=== PATIENT | male | born 1965 | race Caucasian/White ===

== ENCOUNTER → 2021-01-10 08:23 | Outpatient (BNVA) | payer MEDICARE, MEDICAID, SELFPAY | PROVIDERS: PCP Internal Medicine; Referring Provider Internal Medicine; Visit Provider Surgery | DX: K40.90 Unilateral inguinal hernia, without obstruction or gangrene, not specified as recurrent (principal) | CPT/HCPCS: 99202 ==

== ENCOUNTER 2021-01-14 10:49 | Day surgery (SDC) | payer MEDICARE, MEDICAID, SELFPAY ==
--- NOTE | 2021-01-11 10:01 | P.CONAN_ITS ---
Documented by User: Savanah Shira 01/11/21 10:04 HPI - Anesthesia Eval Consult details Narrative: 55yo M for Left Hernia Repair Inguinal with mesh Suboxone daily PMFSH Active Problems Active Problems: All Active Problems (Updated 01/10/21 @ 08:50 by Clemente Hernandez MD) Left inguinal hernia (Acute) Past Medical History Medical History Anxiety COPD (chronic obstructive pulmonary disease) Diabetes GERD (gastroesophageal reflux disease) H/O osteomyelitis HTN (hypertension) Smoker Surgical History Surgical History H/O umbilical hernia repair History of ankle surgery Social History Social History Alcohol intake: never Smoking Status: Current every day smoker Cigarettes Per Day: 5 Years Smoked: 30 Smoked in Last 30 Days: Yes Use of substances other than those prescribed or required for medical reasons: No Are you DNR?: Yes Advance Directives: No Advance Directives Information Provided: Yes Meds Allergies Allergy/AdvReac Type Severity Reaction Status Date / Time No Known Allergies Allergy Verified 01/14/21 11:00 Home Medications Medication Instructions Recorded Confirmed Last Taken Type blood sugar diagnostic #10 ea 01/10/21 Unknown History buprenorphine 8 mg-naloxone 2 mg 1 film BUCCAL DAILY 01/10/21 01/14/21 History sublingual film inhalational spacing device #1 ea 01/10/21 Unknown History lancets 33 gauge #100 ea 01/10/21 Unknown History lisinopril 20 mg tablet 20 mg PO DAILY 01/10/21 Unknown History nicotine 7 mg/24 hr daily 1 patch TRANSDERMAL Q24H 01/10/21 Unknown History transdermal patch omeprazole 20 mg capsule,delayed 20 mg PO QAM 01/10/21 Unknown History release thiamine HCl (vitamin B1) 100 mg 100 mg PO DAILY 01/10/21 Unknown History tablet tizanidine 2 mg tablet 2 mg PO BID 01/10/21 Unknown History umeclidinium 62.5 mcg/actuation 1 inh INHALATION BEDTIME 01/10/21 Unknown History blister powder for inhalation albuterol sulfate 2 puff PO QID PRN 01/14/21 01/14/21 Unknown History clonazepam 1 tab PO TID PRN 01/14/21 01/14/21 Unknown History folic acid 1 tab PO DAILY 01/14/21 01/14/21 Unknown History insulin aspart U-100 [Novolog unit SUBCUT 01/14/21 01/13/21 History Flexpen U-100 Insulin] insulin glargine [Basaglar KwikPen 20 unit SUBCUT 01/14/21 01/13/21 History U-100 Insulin] prazosin 1 cap PO BEDTIME 01/14/21 01/14/21 Unknown History sertraline 2 tab PO DAILY 01/14/21 01/14/21 Unknown History umeclidinium [Incruse Ellipta] 1 puff INHALATION DAILY 01/14/21 01/14/21 Unknown History Exam Exam Date and Time: January 11, 2021 100 Assessment and Plan Assessment Anesthesia Assessment: Chart Reviewed Documented by User: Cyndee Norwood 01/14/21 11:55 [facility] Past Medical History Medical History Anxiety COPD (chronic obstructive pulmonary disease) Diabetes GERD (gastroesophageal reflux disease) H/O osteomyelitis HTN (hypertension) Smoker Family History Family history of problems with anesthesia: No Surgical History Surgical History H/O umbilical hernia repair History of ankle surgery History of Problems with Anesthesia: No Social History Social History Alcohol intake: never Smoking Status: Current every day smoker Cigarettes Per Day: 5 Years Smoked: 30 Smoked in Last 30 Days: Yes Use of substances other than those prescribed or required for medical reasons: No Are you DNR?: Yes Advance Directives: No Advance Directives Information Provided: Yes Meds Allergies Allergy/AdvReac Type Severity Reaction Status Date / Time No Known Allergies Allergy Verified 01/14/21 11:00 Home Medications Medication Instructions Recorded Confirmed Last Taken Type blood sugar diagnostic #10 ea 01/10/21 Unknown History buprenorphine 8 mg-naloxone 2 mg 1 film BUCCAL DAILY 01/10/21 01/14/21 History sublingual film inhalational spacing device #1 ea 01/10/21 Unknown History lancets 33 gauge #100 ea 01/10/21 Unknown History lisinopril 20 mg tablet 20 mg PO DAILY 01/10/21 Unknown History nicotine 7 mg/24 hr daily 1 patch TRANSDERMAL Q24H 01/10/21 Unknown History transdermal patch omeprazole 20 mg capsule,delayed 20 mg PO QAM 01/10/21 Unknown History release thiamine HCl (vitamin B1) 100 mg 100 mg PO DAILY 01/10/21 Unknown History tablet tizanidine 2 mg tablet 2 mg PO BID 01/10/21 Unknown History umeclidinium 62.5 mcg/actuation 1 inh INHALATION BEDTIME 01/10/21 Unknown History blister powder for inhalation albuterol sulfate 2 puff PO QID PRN 01/14/21 01/14/21 Unknown History clonazepam 1 tab PO TID PRN 01/14/21 01/14/21 Unknown History folic acid 1 tab PO DAILY 01/14/21 01/14/21 Unknown History insulin aspart U-100 [Novolog unit SUBCUT 01/14/21 01/13/21 History Flexpen U-100 Insulin] insulin glargine [Basaglar KwikPen 20 unit SUBCUT 01/14/21 01/13/21 History U-100 Insulin] prazosin 1 cap PO BEDTIME 01/14/21 01/14/21 Unknown History sertraline 2 tab PO DAILY 01/14/21 01/14/21 Unknown History umeclidinium [Incruse Ellipta] 1 puff INHALATION DAILY 01/14/21 01/14/21 Unknown History Exam Height,Weight and Vital Signs: Vital Signs Temp Pulse Resp BP Pulse Ox 01/14/21 11:21 97.4 F 84 16 136/93 H 94 Pertinent Lab Results Pertinent Lab Results: Lab Results 01/14/21 01/14/21 01/14/21 Range/Units 11:07 11:11 11:11 WBC 8.2 (4.8-10.8) X10*3/uL RBC 4.64 (4.60-5.80) X10*6/uL Hgb 14.9 (14.0-18.0) g/dl Hct 45.4 (42-52) % MCV 97.8 (80-98) fL MCH 32.1 (27.0-33.0) pg MCHC 32.8 (31.0-36.0) g/dl RDW 12.1 (11.0-16.0) % Plt Count 276 (160-400) X10*3/uL MPV 9.3 L (9.4-12.4) fL Absolute Nucleated RBC 0.000 (0.0-0.012) X10*3/uL Nucleated RBC % (auto) 0.0 (0.0-0.2) /100WBC Sodium 140 (135-145) mmol/L Potassium 4.4 (3.3-5.1) mmol/L Chloride 101 (96-108) mmol/L Carbon Dioxide 31 H (22-29) mmol/L Anion Gap 12 (12-20) BUN 15 (9-16) mg/dL Creatinine 0.77 (0.5-1.4) mg/dL Estim Creat Clear Calc 103.6 Estimated GFR > 60 POC Glucose 107 (60-115) mg/dL Fasting Glucose 93 (60-99) mg/dL Calcium 9.8 (8.4-10.2) mg/dL EKG 01/14/21: NSR 82 Airway Mallampati Class: II TM Dist: >3cm Neck ROM: Full Loose/Missing/Broken Teeth: Yes (Edentulous) Heart: RRR Lungs: CTAB Assessment and Plan Assessment Anesthesia Assessment: Anesthesia Plan Discussed and Chart Reviewed Final Anesthetic Review NPO: Yes ASA Class: II Final Preanesthetic Review: No Changes in Pt Med Stat, Meds/Allgs Chart Reviewed, Consent Obtained/Reviewed and Anes Risks/Benef Reviewed Patient Risk: Intermediate Procedure Risk: Low Assessment/Block/Sedation in SS: Assess/Block/Sedation-SS Anesthetic Plan Anesthetic Plan: GA Disposition: Standard PACU
[2021-01-14] VITALS (8 sets, daily range): BP systolic 109–146; BP diastolic 66–93; PULSE 83–93; RESP 14–17; TEMP 36.3; O2SAT 94–99; BMI 25.2
--- NOTE | 2021-01-14 | ECG_ITS ---
Test Reason : PREOP Blood Pressure : / mmHG Vent. Rate : 082 BPM Atrial Rate : 082 BPM P-R Int : 130 ms QRS Dur : 082 ms QT Int : 360 ms P-R-T Axes : 080 063 049 degrees QTc Int : 420 ms Normal sinus rhythm Normal ECG No previous ECGs available Referred By: Savanah Silva Electronically Signed By:Louis Ashford
[2021-01-14 11:15] LABS: Glucose, Whole Blood 107 mg/dL (60-115)
[2021-01-14 11:18] LABS: Hematocrit 45.4 % (42-52); Hemoglobin 14.9 g/dl (14.0-18.0); Mean Corpuscular HGB Conc 32.8 g/dl (31.0-36.0); Mean Corpuscular Hemoglobin 32.1 pg (27.0-33.0); Mean Corpuscular Volume 97.8 fL (80-98); Mean Platelet Volume 9.3 fL (9.4-12.4); Platelet Count 276 X10*3/uL (160-400); Red Blood Count 4.64 X10*6/uL (4.60-5.80); Red Cell Distribution Width 12.1 % (11.0-16.0); White Blood Count 8.2 X10*3/uL (4.8-10.8)
[2021-01-14] MEDS: Lactated Ringers 1,000 ML 100 ML IVCONT (11:32)
[2021-01-14 11:40] LABS: Anion Gap 12 (12-20); Blood Urea Nitrogen 15 mg/dL (9-16); Calcium 9.8 mg/dL (8.4-10.2); Carbon Dioxide 31 mmol/L (22-29); Chloride 101 mmol/L (96-108); Creatinine Clr Calc Pharmacy 103.6; Estimated Glomerular Filt Rate > 60; Glucose Fasting 93 mg/dL (60-99); Potassium 4.4 mmol/L (3.3-5.1); Sodium 140 mmol/L (135-145)
[2021-01-14] MEDS: Midazolam HCl/PF 2 MG/2 ML VIAL IVPUSH (12:46)
--- NOTE | 2021-01-14 14:09 | MHC.SHP ---
Pre-Procedural Eval Section A The patient is an INPATIENT: No Changes since office visit: Yes Patient answered all questions; No Cold of Flu in the past 2 weeks, No New Medical Problems and No Changes in Medication The History & Physical has been completed within 30 days and I have reviewed it.: Yes Section B Chief Complaint: inguinal hernia without obstruction Allergies: Allergies Allergy/AdvReac Type Severity Reaction Status Date / Time No Known Allergies Allergy Verified 01/14/21 11:00 Plan Diagnosis/Plan: Unchanged I have reviewed the history and physical and performed a pertinent physical examination on my patient. No changes have occurred unless specified.
--- NOTE | 2021-01-14 15:34 | W.PM.OPN ---
Operative Note Operative Note Date of Service: 01/14/21 Narrative: Preoperative diagnosis: Left inguinal hernia Postoperative diagnosis: Same Procedure: Repair of inguinal hernia Surgeon: Clemente Hernandez MD Operating Engineer Apprentice: Hola Batres Anesthesia: General LMA Indications for procedure: Repair of left inguinal hernia with mesh Operative findings:. Large sliding indirect left inguinal hernia with sigmoid colon Specimen: None Estimated blood loss: 10 mL Complications: None Procedure details: Patient was brought to the OR and placed in a supine position. After administering general anesthesia the patient's abdomen was prepped with ChloraPrep and draped in a sterile fashion. A surgical time-out was called the consent confirmed. Patient received preoperative antibiotics and Venodyne boots were in place. Local anesthesia consisting of 0.25% Sensorcaine with epinephrine was infiltrated over the left inguinal ligament. Incision was then made in oblique fashion over the inguinal ligament. This carried out through subcutaneous tissue past Kamilah's fashion up to the external oblique aponeurosis. Additional local was infiltrated below the external oblique aponeurosis. This was then incised with a scalpel wide with the Metzenbaum scissors. Spermatic cord was then dissected free from the surrounding inguinal canal and retracted using a Barb drain. The floor of the inguinal canal was examined and no direct hernia was identified. Fibers of the cremasteric muscle were then and an indirect sac was identified. This was dissected down to the internal ring. The sac was then opened and the contents reduced. The sliding hernia was identified therefore the sac was closed using a pursestring of 0 Polysorb suture plicated to the internal oblique aponeurosis. No sac was sent as specimen. Attention was then directed to the direct space which was divided between Allis clamps. The preperitoneal space was then created. This was opened further using an open Ray-Anita sponge. A large extended PHS mesh was then obtained. The circular underlay was placed into the preperitoneal space and deployed. The overlay was then secured to the pubic tubercle conjoined tendon shelving edge of the inguinal ligament using interrupted 0 Polysorb sutures. A slit was made in the mesh and the mesh were wrapped around the spermatic cord at the internal ring. This was then secured to the shelving edge of the inguinal ligament using the 0 Polysorb suture. This was felt to be loose enough to allow the tip of an index finger to pass. Wounds were checked for hemostasis. Wounds were irrigated with saline solution and suctioned dry. External oblique aponeurosis was then closed using a running 2 0 Polysorb suture. Kamilah's fascia and dermis reapproximated using interrupted 3-0 Polysorb sutures. Skin was then closed using a running subcuticular 4-0 Polysorb suture. Steri-Strips 2 x 2 gauze and Tegaderm were then applied. The patient tolerated the procedure well. Sponge, instrument, needle counts reported as correct. Patient was transferred to PACU in stable condition.
== END 2021-01-14 17:00 | disposition home or self-care (01) ==
PROVIDERS: Nurse Practitioner; PCP Internal Medicine; Visit Provider Surgery
PROC: (CPT 49525; principal; 2021-01-14 12:40)
DX: K40.90 Unilateral inguinal hernia, without obstruction or gangrene, not specified as recurrent (principal); K21.9 Gastro-esophageal reflux disease without esophagitis; I10 Essential (primary) hypertension; J44.9 Chronic obstructive pulmonary disease, unspecified; E11.9 Type 2 diabetes mellitus without complications; Z79.4 Long term (current) use of insulin; Z79.51 Long term (current) use of inhaled steroids; Z79.899 Other long term (current) drug therapy; F17.210 Nicotine dependence, cigarettes, uncomplicated
CPT/HCPCS: 49525; 36415; 80048; 82947; 85027; 93005; C1781; J0131; J0690; J1100; J1885; J2250; J2405; J3010

== ENCOUNTER → 2021-01-24 13:05 | Outpatient (BNVA) | payer MEDICARE, MEDICAID, SELFPAY | PROVIDERS: PCP Internal Medicine; Referring Provider Internal Medicine; Visit Provider Surgery | DX: K40.90 Unilateral inguinal hernia, without obstruction or gangrene, not specified as recurrent (principal) | CPT/HCPCS: 99212 ==

== ENCOUNTER 2021-08-13 16:32 | Outpatient (REF) | payer MEDICARE, MEDICAID, SELFPAY ==
--- NOTE | ~2021-08-13 | US_ITS ---
EXAMINATION: US VENOUS ULTRASOUND WITH DOPPLER LOWER EXTREMITY, LEFT CLINICAL INFORMATION: Edema pain COMPARISON: None TECHNIQUE: Ultrasound of the deep veins is performed from the hip to the calf with compression sonography and color and pulse Doppler assessment. Spectral analysis with color-flow imaging is performed. FINDINGS: There is normal venous compression and respiratory variation and augmented flow. The visualized common femoral vein, superficial femoral vein, profunda femoral vein, popliteal vein, and the trifurcation region shows no evidence of deep venous thrombosis. There is no significant popliteal fossa cyst. If the patient's symptoms persist, followup ultrasound in 5 days 7 days might be of value to exclude proximal propagation from a non-visualized calf vein. US/US venous duplex LE LT IMPRESSION: No DVT demonstrated in the left lower extremity.
== END 2021-08-13 16:33 | disposition home or self-care (01) ==
LOC: HO.US 16:32
PROVIDERS: PCP Internal Medicine; Visit Provider Internal Medicine
DX: M79.662 Pain in left lower leg (principal); R60.9 Edema, unspecified
CPT/HCPCS: 93971

== ENCOUNTER 2024-08-16 08:40 | Outpatient (AMB) | payer OTHER, SELFPAY ==
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
== END 2024-08-16 09:20 | disposition home or self-care (01) ==
LOC: HO.HGS 08:40
PROVIDERS: PCP Internal Medicine; Visit Provider Surgery
DX: K40.90 Unilateral inguinal hernia, without obstruction or gangrene, not specified as recurrent (principal)
CPT/HCPCS: 99204

== ENCOUNTER → 2024-08-16 08:40 | Outpatient (BNVA) | payer OTHER, SELFPAY | PROVIDERS: PCP Internal Medicine; Visit Provider Surgery | DX: K40.90 Unilateral inguinal hernia, without obstruction or gangrene, not specified as recurrent (principal) | CPT/HCPCS: 99202 ==

== ENCOUNTER 2024-10-05 08:01 | Outpatient (REF) | payer OTHER, SELFPAY ==
--- NOTE | ~2024-10-05 | CT_ITS ---
CLINICAL HISTORY: R10.32 - Left lower quadrant pain CT abdomen and pelvis with contrast Comparison: CT/UT/SR - ABDOMEN WO IV CONTRAST [id number] - 12/14/19 12:46 EDT Findings: The lung bases are clear. There is chronic pancreatitis. Several small nonobstructing calculi are seen in the lower pole of the left kidney. No bowel obstruction, pneumoperitoneum, or pneumatosis. There is a large stool burden consistent with constipation. There is a small left inguinal hernia containing fat only. The solid organs are otherwise unremarkable. Prostate is enlarged. No acute fracture. IMPRESSION: 1. Large stool burden suggests constipation. 2. Chronic pancreatitis. 3. Left-sided nephrolithiasis without obstructive uropathy. 4. Prostatomegaly. 5. Small left inguinal hernia containing fat only. This document has been electronically signed by: Roby Dalton MD on 10/05/2024 13:08:24
--- OUTSIDE RECORDS SUMMARY | 2024-10-05 08:06 | XMS_ITS | Encounter Summary ---
Author Organization [employer] Address [address] [place] [address] [address] [place] [address] Care Team Providers Care Order Takers Supervisor Name Role Phone Hal Blair MD Primary Care Prov ider Encounter Details Date Type Department Care Team (Late st Contact Info) Description 01/26/2023 Orders Only [facility] PEDS [address] [place] [address] Socorro Rubio LPN Social History Tobacco Use Types Packs/Day Years Used Date Smoking Tobacco: Never Assessed Depression Answer Date Recorded Patient Health Questionnaire-9 Score 0 11/24/2022 Depression Answer Date Recorded Patient Health Questionnaire-2 Score 0 11/24/2022 Sex and Gender Information Value Date Recorded Sex Assigned at Male 07/07/2022 10:19 AM EDT Legal Sex Male 10:19 AM EDT Gender Identity Male 07/07/2022 10:19 AM EDT Sexual Orientation Straight 07/07/2022 10 :19 AM EDT documented as of this encounter Plan of Treatment Upcoming Encounters Date Type Department Care Team (Late st Contact Info) Description 10/10/2024 10:30 AM EST Office Visit [facility] PEDS [address] [place] [address] Hal Blair MD [address] [place] [address] 11/25/2024 10:15 AM EDT Office Visit [facility]ED[facility] [address] [place] [address] Hal Blair MD [address] [place] [address] documented as of this encounter Visit Diagnoses Not on filedocumented in this encounter Additional Health Concerns Assessment Noted Time PHQ-9 Depression Total Score: 0 11/25/19 23 9:24 AM EDT documented as of this encounter Care Teams Order Takers Supervisor Relationship Specialty Start Date End Date Hal Blair MD [address] [place] [id number] PCP - General Internal Medicine 04/16/20 documented as of this encounter
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
--- OUTSIDE RECORDS SUMMARY | 2024-10-05 08:06 | XMS_ITS | Encounter Summary ---
Author Organization [employer] Address [address] [place] [address] Care Team Providers Care Circulation Manager Name Role Phone Hal Blair MD Primary Care Prov ider Encounter Details Date Type Department Care Team (Late st Contact Info) Description 08/21/2023 Abstract [facility] [address] [place] [address] Hal Blair MD [address] [place], [place] [phone] Social History Tobacco Use Types Packs/Day Years [...] Description 10/10/2024 10:30 AM EST Office Visit [facility] MED [facility] PEDS [address] [place] [address] Hal Blair MD [address] [place] [address] 11/25/2024 10:15 AM EDT Office Visit [facility] MED [facility] PEDS [address] [place] [address] Hal Blair MD [address] [place] [address] documented as of this encounter Visit Diagnoses Not on filedocumented in this encounter Additional Health Concerns Assessment Noted Time PHQ-9 Depression Total Score: 0 11/25/19 23 9:24 AM EDT documented as of this encounter Care Teams Circulation Manager Relationship Specialty Start Date End Date Hal Blair MD [address] [place] [address] PCP - General Internal Medicine 04/16/20 documented as of this encounter
--- OUTSIDE RECORDS SUMMARY | 2024-10-05 08:06 | XMS_ITS | Encounter Summary ---
Author Organization [employer] Address [address] [place] [address] Care Team Providers Care Marble Installer Name Role Phone Hal Blair MD Primary Care Prov ider Reason for Visit * Reason Onset Date Comments Nurse Triage 08/15/2024 Encounter Details Date Type Department Care Team (Late st Contact Info) Description 08/15/2024 Telephone [facility] [address] [place] [address] Hal Blair MD [address] [place] [address] Nurse Triage Social History Tobacco Use Types Packs/Day Years Used Date Smoking Tobacco: Never Assessed Depression Answer Date Recorded Patient Health Questionnaire-9 Score 0 11/24/2022 Housing Stability Answer Date Recorded What is your housing situation today? I have noellejose d giraldo 06/22/[address] you [...] encounter Miscellaneous Notes * Telephone Encounter - Heather Lainez RN - 08/15/2024 4:53 PM EST Triage call x2. Pt didn't answer left voice message to call [facility] [phone] * Telephone Encounter - Glenn Domingo - 08/15/2024 4:08 PM EST Symptom: Urination Pain Outcome: Schedule an urgent appointment (within 1 hour) or talk to a nurse or provider soon Reason: Blood in urine documented in this encounter Plan of Treatment Upcoming Encounters Date Type Department Care Team (Late st Contact Info) Description 10/10/2024 10:30 AM EST Office Visit [facility] [address] [place] [address] Hal Blair MD [address] [place] [address] 11/25/2024 10:15 AM EDT Office Visit [facility] [address] [place] [address] Hal Blair MD [address] [place] [address] documented as of this encounter Visit Diagnoses Not on filedocumented in this encounter Additional Health Concerns Assessment Noted Time PHQ-9 Depression Total Score: 0 11/25/19 23 9:24 AM EDT documented as of this encounter Care Teams Marble Installer Relationship Specialty Start Date End Date Hal Blair MD [address] [place] [id number] PCP - General Internal Medicine 04/16/20 documented as of this encounter
--- OUTSIDE RECORDS SUMMARY | 2024-10-05 08:06 | XMS_ITS | Data Portability ---
Author Organization [employer] [facility], [facility] Address [address] [place] [address] Care Team Providers Care Bobbin Coil Winder Name Role Phone [facility] Referring Provider [facility] Referring Provider Assessment Encounter Date Assessment Date Assessment LastModified by Organization Details LastModified Time 04/15/2022 04/15/2022 This 56-year-old male [facility] about the recent onset of inflammation of his left lower leg without systemic symptoms. He previously has had cellulitis in this area that responded to Bactrim DS. I reviewed images of his left lower leg and it appears he has recurrent cellulitis. I recommended a 5 day course of Bactrim DS twice daily. He will follow up with his PCP. The patient agreed with this plan. [email or web address] Not available 04/15/2022 11:46:49 06/22/2023 06/22/2023 I have reviewed and agree with the assessment and plan as documented by the slunk skinner. I provided real time medical direction for this encounter and was immediately available to provide additional phone based assistance as needed. History as noted by slunk skinner. Pt with history of IDDM, reports fall 5 days ago after he developed dizziness. He sustained abrasion to his nose and R knee. He denies any LOC and noted low blood sugar of 50 after the fall. Since the fall, he denies any recurrent episodes of dizziness or hypoglycemia. He denies any DOMINGUEZ, neck pain, nausea or vomiting. He is requesting evaluation of his abrasions and a prescription for bacitracin ointment. On exa, pt appears comfortable. Vitals are normal with O2 sat of 94% on 3L, his baseline. There are nor orthostatic BP or HR changes from seated to standing. Healing abrasions noted on nasal bridge as well as R knee. No evidence of purulent drainage, erythema or induration. No nasal pain, tenderness or deformity. POC blood sugar: 168. Pt reports his BS was 123 this AM. Last tetanus reportedly 2011. Impression: Recent episode 5 days ago of hypoglycemia and fall with nasal and R knee abrasions but no LOC. No recurrence of symptoms since then. Neuro exam and gait normal. No orthostatic dizziness or vital sign changes. Healing abrasions noted on nasal bridge and R knee which do not appear infected. Blood sugar this AM 123, currently 168. Abrasions appear to be healing well. Pt is prescribed bacitracin ointment to apply to the abrasions bid until healed. Medic does not have tetanus vaccines. Primary care team will need to follow up with the pt later this week to ensure that his abrasions continue to heal well and to arrange for him to receive a tetanus booster. Pt instructed to seek medical attention right away with any worsening or new symptoms, which are reviewed with him. [email or web address] Not available 06/22/2023 12:40:58 07/21/2023 07/21/2023 I provided real -time medical direction via phone for this encounter, and was available for additional phone based assistance as needed. I have reviewed and agree with the Assessment and Plan as documented by the Director Of In Service Education. Patient given the opportunity to ask questions. As per above, patient calls with multiple issues. He is O2 dependent and wants portable oxygen. He has a concentrator in his bedroom and wants a longer hose. He would also like a refill on his Albuterol MDI and Symbicort. He denies any other issues or complaints. We discussed the diagnostic uncertainty of home visits and the risk associated with this. In this case, the patient and I felt this to be an acceptable and reasonable amount of risk given the benefit of avoiding an ED visit. We discussed the need to seek care urgently/emerge ntly in the setting of any new, serious symptoms. Plan to contact his care team to assist with home O2 supplies and the slunk skinner on the scene graciously helped the patient call his PCP to assist him with refilling and clarifying his medications and their doses. Not available 07/21/2023 15:47:41 06/16/2024 06/16/2024 As noted, we were called to see this patient regarding concerns of edema. Evaluation in the field was performed by my slunk skinner colleague, as noted above, I provided real-time direction and supervision for this visit. The evaluation revealed 58y M with frequent alcohol use, currently intoxicated, presenting with 2+ pitting edema that he reports has worsened over last 2 days. has had this before but not as advanced. No inciting event -- no cp episodes, shob, dizziness, falls to raise concern for cardiopulm event; no fevers, no pablo erythema to declare cellulitis. Intoxicated limiting comfort with work up for slunk skinner. Encourage elevation, mobilizatoin, f/u w PCP and we can re-visit tomorrow. Impression: bilateral edema Plan: supportive care, f/u PCP, repeat visit tomorrow Primary care, consider f/u in 5-7d Disposition: We discussed the diagnostic uncertainty of home visits and the risk associated with this. In this case, the patient and I felt this to be an acceptable and reasonable amount of risk given the benefit of avoiding an ED visit. We discussed the need to seek care urgently/emerge ntly in the setting of any new or worsening serious symptoms, particularly chest pain, dizziness, shob fevers, worsening pain atilhou Not available 06/16/2024 19:13:27 06/18/2024 06/18/2024 I provided real -time medical direction via phone for this encounter and was available for additional phone-based assistance as needed. I have reviewed and agree with the Assessment and Plan as documented by the Director Of In Service Education. Patient given the opportunity to ask questions. Our service contacted for an assessment of: Edema As per above, patient had obvious hypoxemia with bluish color of his lips. Diminished breath sounds per slunk skinner bilaterally with poor air movement and 3+ bilateral pitting edema. Per slunk skinner on the scene, patient's O2 sat on room air 58% and upon arrival of 911 services the patient is O2 sat went to 78 with CPAP and PEEP 10 in the field Impression and plan: Sent 911 to [facility] Emergency Department with hypoxemia and expect call made. Not available 06/18/2024 13:04:54 Plan of Treatment Reminders Order Date Submit Date Provider Last Modified By Organization Details Last Modified Time Details Appointments None recorded. Lab None recorded. Referral None recorded. Procedures None recorded. Surgeries None recorded. Imaging None recorded. Medication Orders Bactrim 400 mg-80 mg tablet 2021 022 [facility], [address], [place], [id number], 2 12:01:09 bacitracin 500 unit/gram topical ointment 2022 023 [id number], [address], [place], [id number], 3 12:38:27 Patient TargetsNo targets recorded. Patient InstructionsNo instructions recorded. Reason for Referral None Reported. Medical Equipment None Reported. Medications Name Sig Start Date Stop Date Status Note LastModified by Organization Details LastModified Time prednisone 10 mg tablet PLEASE SEE ATTACHED FOR DETAILED DIRECTIONS active Not Available Not Available N ot Available tizanidine 2 mg tablet TAKE ONE TABLET TWICE DAILY NEEDED, DO NOT EXCEED THREE TABLETS IN 24 HOURS active Not Available Not Available No t Available ibuprofen 800 mg tablet TAKE 1 TABLET BY MOUTH THREE TIMES DAILY WITH FOOD NEEDED FOR PAIN active Not Available Not Available No t Available sulfamethoxa zole 400 mg-trimethop rim 80 mg tablet TAKE TWO TABLETS BY MOUTH TWICE DAILY FOR 5 DAYS active Not Available Not Available No t Available prazosin 1 mg capsule TAKE 1 CAPSULE BY MOUTH EVERY NIGHT active Not Available Not Available No t Available FreeStyle Lancets 28 gauge USE DIRECTED TO TEST BLOOD GLUCOSE THREE TIMES DAILY active Not Available Not Available No t Available lisinopril 20 mg tablet TAKE 1 TABLET BY MOUTH EVERY DAY active Not Available Not Available No t Available sertraline 100 mg tablet TAKE 2 TABLETS BY MOUTH EVERY DAY active Not Available Not Available No t Available clonazepam 1 mg tablet TAKE 1 TABLET BY MOUTH THREE TIMES DAILY AND 1 TABLET NEEDED FOR ANXIETY active Not Available Not Available No t Available bacitracin 500 unit/gram topical ointment Apply small amount to abrasions bid until they are healed. 2022 active Not Available Not Available Not Avai lable bacitracin zinc 500 unit/gram topical ointment APPLY SMALL AMOUNT TO ABRSIONS TWICE DAILY UNTIL THEY ARE HEALED active Not Available Not Available N ot Available ketorolac 0.5 % eye drops INSTILL 1 DROP IN AFFECTED EYE THREE TIMES DAILY DIRECTED. START 2 DAYS BEFORE SURGERY. TAPER DIRECTED active Not Available Not Available No t Available omeprazole 20 mg capsule,melissa yed release TAKE ONE CAPSULE BY MOUTH EVERY DAY BEFORE A MEAL active Not Available Not Available No t Available cefuroxime axetil 500 mg tablet TAKE 1 TAB BY MOUTH TWICE DAILY active Not Available Not Available Not Available lisinopril 40 mg tablet active Not Available Not Available Not Available Ventolin HFA 90 mcg/actuatio n aerosol inhaler INHALE 2 PUFFS INTO THE LUNGS EVERY 4 HOURS NEEDED active Not Available Not Available No t Available Novolog FlexPen U-100 Insulin aspart 100 unit/mL (3 mL) subcutaneous inject as directed before meals- if BS= 70 - 139= 0U; 140 - 180= 4U; 181 - 240= 6u; 241 - 300=8u; 301 - 350=10u; 351 - 400 =12 units active Not Available Not Available No t Available Symbicort 80 mcg-4.5 mcg/actuatio n HFA aerosol inhaler INHALE 2 PUFFS BY MOUTH TWICE DAILY EVERY MORNING AND EVERY NIGHT . RINSE MOUTH AFTER USE active Not Available Not Available No t Available FreeStyle Lite Meter kit USE DIRECTED TO TEST BLOOD GLUCOSE active Not Available Not Available No t Available FreeStyle Lite Strips USE DIRECTED THREE TIMES DAILY TO TEST BLOOD GLUCOSE active Not Available Not Available No t Available Lantus Solostar U-100 Insulin 100 unit/mL (3 mL) subcutaneous pen INJECT 10 UNITS UNDER THE SKIN AT BEDTIME active Not Available Not Available No t Available buprenorphin e 8 mg-naloxone 2 mg sublingual film DISSOLVE 1 FILM UNDER THE TONGUE THREE TIMES DAILY active Not Available Not Available No t Available TRUEplus Lancets 33 gauge TEST BLOOD SUGAR THREE TIMES DAILY active Not Available Not Available Not Available Incruse Ellipta 62.5 mcg/actuatio n powder for inhalation INHALE 1 PUFF DAILY AT THE SAME TIME EACH DAY active Not Available Not Available No t Available Vitals Date Recorded Body temperature Body height Oxygen saturation Oxygen saturation in Arterial blood by Pulse oximetry Heart rate Oxygen saturation Oxygen saturation in Arterial blood by Pulse oximetry Inhaled oxygen flow rate Body weight Systolic blood pressure Diastolic blood pressure Provider Name and Address Organization Details Last Updated DateTime 3 97.9 [degF] 172.72 cm 85 % 85 % 88 /min 94 % 94 % 3 L/min 12509.8 4 g 147 mm[Hg] 78 mm[Hg] Not Available [employer] 3 12:12:52 Date Recorded Respiratory rate Provider Name a nd Address Organization Details Last Updated DateTime 06/22/2023 18 /min Shaun Cosby MD [address] [place] [address],[address], [place], [address], [place] - [employer] 06/22/2023 12:15:42 Date Recorded Respiratory rate Heart rate Oxygen saturation Oxygen saturation in Arterial blood by Pulse oximetry Body temperature Body weight Body height Systolic blood pressure Diastolic blood pressure Provider Name and Address Organization Details Last Updated DateTime 3 18 /min 80 /min 90 % 90 % 99 [degF] 64340.6 g 172.72 cm 172 mm[Hg] 79 mm[Hg] Not Available [employer] 3 14:41:07 Date Recorded Body temperature Oxygen saturation Oxygen saturation in Arterial blood by Pulse oximetry Inhaled oxygen flow rate Body weight Heart rate Respiratory rate Systolic blood pressure Diastolic blood pressure Provider Name and Address Organization Details Last Updated DateTime 4 98.8 [degF] 96 % 96 % 4 L/min 00651.8 g 84 /min 16 /min 158 mm[Hg] 78 mm[Hg] Not Available [employer] 4 19:02:49 Date Recorded Oxygen saturation Oxygen saturation in Arterial blood by Pulse oximetry Body weight Heart rate Respiratory rate Body temperature Systolic blood pressure Diastolic blood pressure Provider Name and Address Organization Details Last Updated DateTime 4 50 % 50 % 70612.9 84 g 91 /min 14 /min 97.6 [degF] 153 mm[Hg] 77 mm[Hg] Not Available [employer] 4 13:02:02 Social History None recorded. Functional Status None recorded. Mental Status None recorded. Family History Nothing Reported. Medical History No medical history recorded. Past Encounters Encounter ID Performer Location Encounter Start Date Encounter Closed Date Diagnosis/Indication Diagnosis SNOMED-CT Code Diagnosis ICD10 Code Diagnosis Note [id number] Sree Adams MD [facility] [address] [place] [id number] 04/15/2022 11:39:15 06/03/2022 16:00:54 Cellulitis of lower limb [id number] L03.119 [id number] Shaun Cosby MD [facility] [address] [place] [id number] 06/22/2023 12:12:41 06/23/2023 10:58:10 Abrasion of face 841724914 S00.81XA Abrasion o f skin of right knee 5261306376 9551937 S80.211A [id number] Deja Gomez MD [facility] [address] [place] [address] [id number] 07/21/2023 14:41:01 07/21/2023 19:27:27 Chronic obstructive pulmonary disease [id number] J44.9 [id number] Sweetie Mcclure MD [facility] [address] [place] [address] [id number] 06/16/2024 19:02:40 06/16/2024 22:34:31 Edema of lower extremity 286858438 R60.0 [id number] Deja Gomez MD [facility] [address] [place] [address] [id number] 06/18/2024 13:01:53 06/18/2024 17:38:25 Hypoxia 192898743 R09.02 Health Concerns Section Related Observation LastModified by Organization Detai ls LastModified Time None Recorded Concern Status LastModified by Organization Details LastModified Time None Recorded Advance Directives Directive None Recorded Payers Encounter Date Sequence Insurance Name Policy Number Policy Darling Covered Member ID Darling Member ID Guarantor Name 04/15/2022 1 [facility] - DOS PRIOR TO 2022 - DUAL ELIGIBLE (MEDICARE REPLACEMENT/AD VANTAGE - HMO) Rei Nielsen [id number] Rei Nielsen 06/22/2023 1 [facility] - DOS ON OR AFTER 2022 - DUAL ELIGIBLE - HALF-WAY OPTIONS AND ONE CARE (MEDICARE REPLACEMENT/AD VANTAGE - HMO) Rei Nielsen [id number] Rei Nielsen 07/21/2023 1 [facility] - DOS ON OR AFTER 2022 - DUAL ELIGIBLE - HALF-WAY OPTIONS AND ONE CARE (MEDICARE REPLACEMENT/AD VANTAGE - HMO) Rei Nielsen [id number] Rei Nielsen 06/16/2024 1 [facility] - DOS ON OR AFTER 2022 - DUAL ELIGIBLE - HALF-WAY OPTIONS AND ONE CARE (MEDICARE REPLACEMENT/AD VANTAGE - HMO) Rei Nielsen [id number] Rei Nielsen 06/18/2024 1 [facility] - DOS ON OR AFTER 2022 - DUAL ELIGIBLE - HALF-WAY OPTIONS AND ONE CARE (MEDICARE REPLACEMENT/AD VANTAGE - HMO) Rei Nielsen [id number] Rei Nielsen Notes Date Note Type Note Provider Name and Address Organization Details Recorded Time 04/15/2022 text/html HPI: Left lower extremity cellulitis , 4 inch area , bright red as had before in August. ..................... ..................... ..................... ..................... ..................... ..................... ............... [facility] Nursing Assessment: Comments: request review no further information needed to process visit Sree Adams MD [address] [place] [address],[address], [place], [phone], [employer] 04/15/2022 11:50:04 06/22/2023 text/html This was a super vised home visit with slunk skinner Rei Caraballo. HPI: HX: Smoker , Opioid dependency in Remission,GERD, anxiety. Patient with fall on the street 3-4 days prior. Scraped knee and face. NO ED evaluation. BG at home after found to be 50. OK since then this morning 123. Concerned about wounds. Last TDAP per record here is 09/2011. ..................... ..................... ..................... ..................... ..................... ..................... ............... [facility] Nursing Assessment: Comments: POC went low, dizzy, 5 days ago, fell and now has wounds to right knee/face. painful. No ED visit hx PTSD Called Member and updated address/phone number Hpattelizabeth [place] ..................... ..................... ..................... ..................... ..................... ..................... ............... Director Of In Service Education Note From Rei Caraballo: Pt reports fall from standing outside 5 days ago. Pt denies LOC and is not on thinners. Pt was found to have a BG of 50. Pt is an IDDM, uses lantus and novolog. Since the fall, BG have been in the ? l ow to mid 100? s ? and the pt denies any additional falls or dizzy spells. Pt is requesting rx for bacitracin. Pt also requests a new nasal cannula because his broke two days ago. Pt is alert, NAD. VSS. No change in ortho VS. Room air SpO2 85%. Afebrile. Neuro exam and gait normal. Lungs CTA. Benign ABD exam. No LLE. Healing abrasion on bridge of nose. Open abrasion on left knee, minimal serosanguineous drainage. B. Pt provided with a new NC and SpO2 reassessed at 95% on 3 lpm. Pt instructed to contact PCP? s office today for tetanus and to schedule a f/u. ..................... ..................... ..................... ..................... ..................... ..................... ............... Disposition: Fulfilled Shaun Cosby MD [address] [facility],[address], [place], [phone], [employer] 06/22/2023 13:01:38 07/21/2023 text/html HPI: Member called CRU, c/o sob especially on activity, dizziness. Member takes Symbicort, albuterol, Wixela mdi's. Member reports inhalers are not helping. Member was able to speak in full sentences without pauses or breaks. PMH: COPD, htn, opioid dependence, smoker. Member is also requesting portable o2 tank and hoses. Advised member to follow up with PCP office for that request. Member verbalized comprehension and agreed with this plan. ..................... ..................... ..................... ..................... ..................... ..................... ............... [facility] Nursing Assessment: Comments: CRC RN did not require any additional information to process this visit. ..................... ..................... ..................... ..................... ..................... ..................... ............... Director Of In Service Education Note From Clemente Ramsey: Patient CONSTANTINO times three answers door with a steady slow gate. Patient complains of shortness of breath time several days. Patient states he ran out of his symbicort and albuterol inhalers yet states he has refills at the pharmacy. Patient states he started the process of getting portable oxygen this morning so that he could leave the house again. Patient reports increased shortness of breath times several weeks. Patient states increase of shortness of breath on exertion. Patient denies chest pain, headache nausea, vomiting, diarrhea or any other pain or complaints. Patient reports normal intake and elimination. Patient pink, warm and dry secondary exam unremarkable. Negative increased work of breathing positive full sentences negative use of accessory muscles to breathe negative edema noted. [facility] advises patient to follow up with PCP-[facility] to obtain refills of Symbicort. [facility] will call in albuterol to patient? s local pharmacy. Red flags and patient education discussed. ..................... ..................... ..................... ..................... ..................... ..................... ............... Disposition: Fulfilled Deja Gomez MD [address] [facility],[address], [place], [phone], [employer] 07/21/2023 15:48:16 06/16/2024 text/html CRC Nurse Triage Notes (Deidre Mcgowan): Reason For Request: pt suspecting cellulitis in legs knees down Chief Complaints: Cellulitis PMH: COPD/Asthma, Diabetes, Hypertension Allergies: No Known Comments: Patient report increased swelling to bilateral lower extremities below knee down to feet since yesterday. Appears red, swollen, and warm to touch. Increased difficulty ambulating. Report slight shortness of breath. No known fever. Denies chest pain.[facility] HPI: 2+ pitting edema x 2 days. warmth, redness. swelling has happened before maybe but not with this swelling. no recent chest pain episodes, no worsened shob or dizziness. intoxicated.......... ..................... ..................... ..................... ..................... ..................... ..................... ...... Director Of In Service Education Note From Nehemias Mitchell: Pt co edema in feet/ankles for past 2 days with discoloration. Pt initially said discoloration was new and later stated he always has discoloration, Pt ETOH upon arrival nd poor historian. Pt admitted to alcohol and marijuana use prior to arrival. Pt admitted to eatingfoods high in salt over the past 2 days. Pt denies fever CP, Dizziness, SOB, cough other thanbaseline smokers cough, PE sts never had edema before however sts when he does getedema he elevates his legs when it happens and it occasionally happens. Pt sts he does havecompression sock but has not used them as of yet, Photos uploaded into [employer]. Baseline vitals assessed, WNL, Lings clear, Afebrite, extremities neg hot to touch. Edema present in feet 1 to 2 plus edema present bilaterally. [facility] contacted and advised pt to keep legs/feet elevated overnight and wear compression socks. [facility] scheduled follow up appt fortomorrow to reevaluation, Pt agreeable to care plan. Pt education on signs indicating theER. ..................... ..................... ..................... ..................... ..................... ..................... ............... Disposition: Fulfilled Sweetie Mcclure MD [address] [facility],[address], [place], [address], [employer] 06/16/2024 20:41:41 06/18/2024 text/html [facility] Nurse Triage Notes (Linda Ellsworth): Chief Complaints: Cellulitis PMH: COPD/Asthma, Diabetes, Hypertension Allergies: Unknown Comments: Pt was seen on 06/16. [facility] recommended a follow up visit. > [facility] Remarksintoxicated. best to repeat visit tomorrow for comparison of presentaiton and better historyPatient report increased swelling to bilateral lower extremities below knee down to feet since yesterday. Appears red, swollen, and warm to touch. Increased difficulty ambulating. Report slight shortness of breath. No known fever. Denies chest pain.An outreach was completed on 06/17> he stated that he was feeling the same and now his jeans are tighter and he can not wear them due to the swelling. he denied any f/c/n/v/d. He was reminded that we would be unable to complete the visit if he was intoxicated. He agreed to the plan and asked for a visit on 06/18 which was placed on his behalf ..................... ..................... ..................... ..................... ..................... ..................... ............... Director Of In Service Education Note From Rei Caraballo: Pt with hx of COPD, DM, HTN reports 5 days of painful BLE edema and an 8 lb weight gain. Pt denies CP, SOB, PALACIO, f/n/v/d. Pt is alert, slow to respond at times, cyanotic lips (pt sts this is from a blue drink but was unable to produce or articulate what the drink was). Room air SpO2 50-58%. Diffusely diminished LS. +3 BLE pitting edema. I resumed the pt? s home O2 while calling for EMS. SBAR given to [facility] and [facility], transport to [facility]. ..................... ..................... ..................... ..................... ..................... ..................... ............... Disposition: Fulfilled Deja Gomez MD [address] [facility],[address], [place], [address], [employer] 06/18/2024 13:07:05
--- OUTSIDE RECORDS SUMMARY | 2024-10-05 08:06 | XMS_ITS | Encounter Summary ---
Author Organization [employer] Address [facility] [address] [place] [address] Care Team Providers Care Hotel Receptionist Name Role Phone Hal Blair MD Primary Care Prov ider Reason for Visit * Reason Onset Date Comments Referral 08/22/2024 Encounter Details Date Type Department Care Team (Late st Contact Info) Description 08/22/2024 Telephone [facility] MEDICINE [address] [place] [address] Hal Blair MD [address] [place], [place] [phone] Referral Social History Tobacco Use Types Packs/Day Years [...] encounter Miscellaneous Notes * Telephone Encounter - Daphnie Mcqueen RN - 08/23/2024 10:05 AM EST Patient requesting referral for 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 Clemente Hernandez [address], [place] [address] Phone number: [phone] Fax number: [phone] Message previously sent to PCP to see if 15 min appointment in september will suffice for surgeons tohave background on patient. * Telephone Encounter - Tremaine Pate - 08/22/2024 12:12 PM EST Tc fro pt requesting a referral to : Dr. Clemente Hernandez [address] [facility], [place] [address] Phone number: [phone] Fax number: [phone] documented in this encounter Plan of Treatment Upcoming Encounters Date Type Department Care Team (Late st Contact Info) Description 10/10/2024 10:30 AM EST Office Visit [facility] PEDS [address] [place] [address] Hal Blair MD [address] [place] [address] 11/25/2024 10:15 AM EDT Office Visit [facility] [address] [place] [address] Hal Blair MD [address] [place] [address] documented as of this encounter Visit Diagnoses Not on filedocumented in this encounter Additional Health Concerns Assessment Noted Time PHQ-9 Depression Total Score: 0 11/25/19 23 9:24 AM EDT documented as of this encounter Care Teams Hotel Receptionist Relationship Specialty Start Date End Date Hal Blair MD [address] [place] [address] PCP - General Internal Medicine 04/16/20 documented as of this encounter
--- OUTSIDE RECORDS SUMMARY | 2024-10-05 08:06 | XMS_ITS | Encounter Summary ---
Author Organization [employer] Address [address] [facility] 7t [place] [address] Care Team Providers Care Garden Tractor Mechanic Name Role Phone Hal Blair MD Primary Care Prov ider Reason for Visit * Reason Comments Med Refill Encounter Details Date Type Department Care Team ([facility] st Contact Info) Description 09/13/2024 Refill [facility] MED & PEDS [address] [place] [address] Hal Blair MD [address] [place] [address] Moderate persistent asthma without complication Social History Tobacco Use Types Packs/Day Years [...] Description 10/10/2024 10:30 AM EST Office Visit [facility] MED & PEDS [address] [place] [address] Hal Blair MD [address] [place] [address] 11/25/2024 10:15 AM EDT Office Visit [facility] MED [facility] PED[facility] [address] [place] [address] Hal Blair MD [address] [place] [address] documented as of this encounter Visit Diagnoses Diagnosis Moderate persistent asthma without complication documented in this encounter Additional Health Concerns Assessment Noted Time PHQ-9 Depression Total Score: 0 11/25/19 23 9:24 AM EDT documented as of this encounter Care Teams Garden Tractor Mechanic Relationship Specialty Start Date End Date Hal Blair MD [address] [place] [address] PCP - General Internal Medicine 04/16/20 documented as of this encounter
--- OUTSIDE RECORDS SUMMARY | 2024-10-05 08:06 | XMS_ITS | Encounter Summary ---
Author Organization [employer] Address [address] [facility] 7t [place] [address] Care Team Providers Care Hydraulic Rock Drill Operator Name Role Phone Hal Blair MD Primary Care Prov ider Reason for Visit * Reason Onset Date Comments ER Follow-up 07/23/2023 Encounter Details Date Type Department Care Team ([facility] Contact Info) Description 07/23/2023 Telephone [facility] MED & PEDS [address] [place] [address] Hal Blair MD [address] [place] [address] ER Follow-up Social History Tobacco Use Types Packs/Day Years [...] encounter Miscellaneous Notes * Telephone Encounter - Georgina Yeboah RN - 07/24/2023 11:46 AM EST Returned call to pt regarding message below. Pt states [facility]. Pt was not prescribed anything nor any further POC was determined. Pt states he is homebound d/t not having portable O2 and is requesting a portable tank. Pt informed we can schedule appt with provider or PCP to start process as there are no clinical notes indicating need. Phone disconnected returned call and this RN returned call with no answer. LVM to return call. * Telephone Encounter - Therese Rivera - 07/23/2023 2:01 PM EST Tc from [facility] with [facility] to report an [facility] visit. Pt was seen at home by [facility] on 07/21 for breathing trouble. Pt is requesting a f/u with PCP. Was advised will forward to team nurses for f/u. Please contact pt at [phone] documented in this encounter Plan of Treatment Upcoming Encounters Date Type Department Care Team (Late st Contact Info) Description 10/10/2024 10:30 AM EST Office Visit [facility] [address] [place] [address] Hal Blair MD [address] [place] [address] 11/25/2024 10:15 AM EDT Office Visit [facility] [address] [place] [address] Hal Blair MD [address] [place] [address] documented as of this encounter Visit Diagnoses Not on filedocumented in this encounter Additional Health Concerns Assessment Noted Time PHQ-9 Depression Total Score: 0 11/25/19 23 9:24 AM EDT documented as of this encounter Care Teams Hydraulic Rock Drill Operator Relationship Specialty Start Date End Date Hal Blair MD [address] [place] [address] PCP - General Internal Medicine 04/16/20 documented as of this encounter
--- OUTSIDE RECORDS SUMMARY | 2024-10-05 08:06 | XMS_ITS | Encounter Summary ---
Author Organization [employer] Address [address] [facility] [address] [place] [address] Care Team Providers Care Qi Specialist Name Role Phone Hal Blair MD Primary Care Prov ider Encounter Details Date Type Department Care Team (Latest Contact Info) Description 09/20/2024 Travel Social History Tobacco Use Types Packs/Day Years [...] 10:30 AM EST Office Visit [facility] MED & PEDS [address] [place] [address] Hal Blair MD [address] [place] [address] 11/25/2024 10:15 AM EDT Office Visit [facility] MED & PEDS [address] [place] [address] Hal Blair MD [address] [place] [address] documented as of this encounter Visit Diagnoses Not on filedocumented in this encounter Additional Health Concerns Assessment Noted Time PHQ-9 Depression Total Score: 0 11/25/19 23 9:24 AM EDT documented as of this encounter Care Teams Qi Specialist Relationship Specialty Start Date End Date Hal Blair MD [address] [place] [address] PCP - General Internal Medicine 04/16/20 documented as of this encounter
--- OUTSIDE RECORDS SUMMARY | 2024-10-05 08:06 | XMS_ITS | Encounter Summary ---
Author Organization [employer] Address [address] [place] [address] 7 [place] [address] Care Team Providers Care Correctional Food Service Supervisor Name Role Phone Hal Blair MD Primary Care Prov ider Reason for Visit * Reason Onset Date Comments returning call 09/26/2022 Encounter Details Date Type Department Care Team (Late Contact Info) Description 09/26/2022 Telephone [facility] MED & PEDS [address] [place], [place] [phone] Hal Blair MD [address] [place] [address] returning call Social History Tobacco Use Types Packs/Day Years Used Date Smoking Tobacco: Never Assessed Sex and Gender Information Value Date Recorded Sex Assigned at Male 07/07/2022 10:19 AM EDT Legal Sex Male 10:19 AM EDT Gender Identity Male 07/07/2022 10:19 AM EDT Sexual Orientation Straight 07/07/2022 10 :19 AM EDT documented as of this encounter Miscellaneous Notes * Telephone Encounter - Fernanda Daley - 09/26/2022 10:20 AM EST Tc [facility] returning call regarding pre op . documented in this encounter Plan of Treatment Upcoming Encounters Date Type Department Care Team (Late Contact Info) Description 10/10/2024 10:30 AM EST Office Visit [facility] MED & PEDS [address] [place], [place] [phone] Hal Blair MD [address] [place] [address] 11/25/2024 10:15 AM EDT Office Visit [facility] MED & PEDS [address] [place] [address] Hal Blair MD [address] [place] [address] documented as of this encounter Visit Diagnoses Not on filedocumented in this encounter Care Teams Correctional Food Service Supervisor Relationship Specialty Start Date End Date Hal Blair MD [address] [place] [address] PCP - General Internal Medicine 04/16/20 documented as of this encounter
--- OUTSIDE RECORDS SUMMARY | 2024-10-05 08:06 | XMS_ITS | Encounter Summary ---
Author Organization [employer] Address [address] [facility] [address]t [place] [address] Care Team Providers Care Reference Library Assistant Name Role Phone Hal Blair MD Primary Care Prov ider Reason for Visit * Reason Onset Date Comments FRANK/Yaz 08/18/2024 Encounter Details Date Type Department Care Team ([facility] st Contact Info) Description 08/18/2024 Telephone [facility] MEDICINE [address] [place] [address] Hal Blair MD [address] [facility] [place] [address] FYI/Yaz Social History Tobacco Use Types Packs/Day Years [...] encounter Miscellaneous Notes * Telephone Encounter - Selina Tam RN - 08/18/2024 1:11 PM EST TC placed to Kezia at [facility] General Surgery who confirmed that the pt is going to be having 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 The pt does not have a surgery date yet as they need clearance from PCP first. Kezia stated that they have very little information on the pt about his overall health status. The pt does have an upcoming appt on 09/19/24 for a f/u. This message will be routed to PCP for FYI and to confirm that a 15 minute appt will suffice * Telephone Encounter - Jay Jay Coats - 08/18/2024 12:00 PM EST Tc from Kezia with [facility] General Surgeon Stating would like to see if Pt could be Cleared for Surgery in his upcoming apt. If any questions Contact Kezia at [phone] FAX [phone] documented in this encounter Plan of Treatment Upcoming Encounters Date Type Department Care Team (Late st Contact Info) Description 10/10/2024 10:30 AM EST Office Visit [facility] MED & PEDS [address] [place] [address] Hal Blair MD [address] [place] [address] 11/25/2024 10:15 AM EDT Office Visit [facility] MED [facility] PED[facility] [address] [place] [address] Hal Blair MD [address] [place] [address] documented as of this encounter Visit Diagnoses Not on filedocumented in this encounter Additional Health Concerns Assessment Noted Time PHQ-9 Depression Total Score: 0 11/25/19 23 9:24 AM EDT documented as of this encounter Care Teams Reference Library Assistant Relationship Specialty Start Date End Date Hal Blair MD [address] [place] [address] PCP - General Internal Medicine 04/16/20 documented as of this encounter
--- OUTSIDE RECORDS SUMMARY | 2024-10-05 08:06 | XMS_ITS | Encounter Summary ---
Author Organization [employer] Address [address] [facility] [address] [place] [address] Care Team Providers Care Dairy Department Manager Name Role Phone Hal Blair MD Primary Care Prov ider Encounter Details Date Type Department Care Team (Latest Contact Info) Description 09/19/2024 Travel Social History Tobacco Use Types Packs/Day [...] 10:30 AM EST Office Visit [facility] MED & PEDS [address] [place] [address] Hal Blair MD [address] [place] [address] 11/25/2024 10:15 AM EDT Office Visit [facility] MED & PEDS [address] [place] [address] Hal Blair MD [address] [place] [address] documented as of this encounter Visit Diagnoses Not on filedocumented in this encounter Additional Health Concerns Assessment Noted Time PHQ-9 Depression Total Score: 0 11/25/19 23 9:24 AM EDT documented as of this encounter Care Teams Dairy Department Manager Relationship Specialty Start Date End Date Hal Blair MD [address] [place] [address] PCP - General Internal Medicine 04/16/20 documented as of this encounter
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
--- OUTSIDE RECORDS SUMMARY | 2024-10-05 08:06 | XMS_ITS | Encounter Summary ---
Author Organization [employer] Address [address] [facility] [address] [place] [address] Care Team Providers Care Tape Maker Name Role Phone Hal Blair MD Primary Care Prov ider Reason for Visit * Reason Comments Med Refill Encounter Details Date Type Department Care Team (Late st Contact Info) Description 02/26/[address] [facility] MEDICINE [address] [place] [address] Hal Blair MD [address] [place], [place] [phone] Social History Tobacco Use Types Packs/Day Years [...] Description 10/10/2024 10:30 AM EST Office Visit [facility] MED & PEDS [address] [place] [address] Hal Blair MD [address] [place] [address] 11/25/2024 10:15 AM EDT Office Visit [facility] MED & PEDS [address] [place] [address] Hal Blair MD [address] [place] [address] documented as of this encounter Visit Diagnoses Not on filedocumented in this encounter Additional Health Concerns Assessment Noted Time PHQ-9 Depression Total Score: 0 11/25/19 23 9:24 AM EDT documented as of this encounter Care Teams Tape Maker Relationship Specialty Start Date End Date Hal Blair MD [address] [place] [address] PCP - General Internal Medicine 04/16/20 documented as of this encounter
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
--- OUTSIDE RECORDS SUMMARY | 2024-10-05 08:06 | XMS_ITS | Encounter Summary ---
Author Organization [employer] Address [address] [place] [address] Care Team Providers Care Power Brake Operator Name Role Phone Hal Blair MD Primary Care Prov ider Reason for Visit * Reason Onset Date Comments Nurse Triage 03/15/2024 Encounter Details Date Type Department Care Team (Late st Contact Info) Description 03/15/2024 Telephone [facility] MEDICINE [address] [place] [address] Hal Blair MD [address] [place], [place] [id number] Nurse Triage Social History Tobacco Use Types [...] Telephone Encounter - Heather Lainez RN - 03/15/2024 12:20 PM EDT Triage call Pt reports several concerns. Pt reports unusual bruising on left leg. Pt denies injury and is not taking blood thinners. Pt also reports weight loss of 50lbs over last month. Pt denies diet changes. Pt also reports vision problems since eye surgery. Pt is advised to call the ophthamologist who did the surgery to schedule follow up and Pt agreed. Pt takes care of spouse who is wheelchair bound and is , scared that something has changed with Pt health. Pt is given ASK apt with Dr. Longoria 03/22/24 @ 1115a. Insurance is verified as active prior to booking and Pt agrees with disposition. Pt is advised if symptoms become worse before apt date to seek evaluation in closest ED. Pt rep orts, I don't want to go to the emergency room Protocol Used: Bruises (Adult) Protocol-Based Disposition: See in Office or Video Visit within 3 Days Override (Final) Disposition: See in Office or Video Visit within 2 Weeks Override Reason: No appointments available Video visit offer not recorded Positive Triage Questions: * Less than 5 unxplained bruises now, NOT caused by an injury * Patient wants to be seen * All higher-acuity triage questions were negative Care Advice Discussed: * Reasons To Call Back - Bruise is not fading by 10 days - Bruise persists over 3 weeks - You become worse * Telephone Encounter - Yamilex Pimentel - 03/15/2024 10:15 AM EDT Tc from pt requesting a call back stated multiple symptoms however no further details provided. documented in this encounter Plan of Treatment Upcoming Encounters Date Type Department Care Team (Late st Contact Info) Description 10/10/2024 10:30 AM EST Office Visit [facility] MED & PEDS [address] [place] [address] Hal Blair MD [address] [place] [address] 11/25/2024 10:15 AM EDT Office Visit [facility] MED & PEDS [address] [place] [address] Hal Blair MD [address] [place] [address] documented as of this encounter Visit Diagnoses Not on filedocumented in this encounter Additional Health Concerns Assessment Noted Time PHQ-9 Depression Total Score: 0 11/25/19 23 9:24 AM EDT documented as of this encounter Care Teams Power Brake Operator Relationship Specialty Start Date End Date Hal Blair MD [address] [place] [address] PCP - General Internal Medicine 04/16/20 documented as of this encounter
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
--- OUTSIDE RECORDS SUMMARY | 2024-10-05 08:06 | XMS_ITS | Encounter Summary ---
Author Organization [employer] Address [address] [facility] [address] [place] [address] Care Team Providers Care Osteopathic Resident Name Role Phone Hal Blair MD Primary Care Prov ider Reason for Visit * Reason Onset Date Comments Appointment Request 09/30/2022 Pre-op Exam 11/20/2022 Encounter Details Date Type Department Care Team (Late st Contact Info) Description 09/30/[address] [facility] MEDICINE [address] [place] [address] Hal Blair MD [address] [place] [address] Appointment Request; Pre-op Exam Social History Tobacco Use Types Packs/Day Years Used Date Smoking Tobacco: Never Assessed Sex and Gender Information Value Date Recorded Sex Assigned at Male 07/07/2022 10:19 AM EDT Legal Sex Male 10:19 AM EDT Gender Identity Male 07/07/2022 10:19 AM EDT Sexual Orientation Straight 07/07/2022 10 :19 AM EDT documented as of this encounter Miscellaneous Notes * Telephone Encounter - Savanah Louise RN - 11/20/2022 10:28 AM EDT TC to Leanne, she will inform pt of pre-op appt 3.20.23. 9a. * Telephone Encounter - Brii Booth - 11/20/2022 8:31 AM EDT Tc from patient calling in regards to message below. Patients cataract surgery is on 11/26/22. * Telephone Encounter - Jewel Dos Santos - 11/19/2022 10:52 AM EDT Tc from Leanne form [facility] requesting a Pre-Op Location: [facility] [place], [facility] [address], [place] [address] EXT [phone] Fax: [phone] Procedure: Cataract surgery right eye Date: 11/26/22 Labs: No and no EKG needs * Telephone Encounter - Miles Rivera RN - 09/30/2022 1:43 PM EST Schedule for March not yet available at this time. Call placed to Leanne who confirms dates below. RN informed Leanne that the schedule for booking is not open at this time. Advised to contact the office mid October to check for availability. She verbalizes understanding and agrees to returncall to [facility]. * Telephone Encounter - Brii Booth - 09/30/2022 1:09 PM EST Tc from Leanne at [facility] returning call back, regarding message below. * Telephone Encounter - Delia Giron RN - 09/30/2022 10:11 AM EST Return call placed to Leanne to schedule preop appt, no answer. LVM to return call to [facility] nurses * Telephone Encounter - Verna Muñiz - 09/30/2022 9:11 AM EST Tc from Leanne form [facility] requesting a Pre-Op Location: Phone: Fax: Procedure: Date: Labs: documented in this encounter Plan of Treatment Upcoming Encounters Date Type Department Care Team (Late st Contact Info) Description 10/10/2024 10:30 AM EST Office Visit [facility] MED & PEDS [address] [place] [address] Hal Blair MD [address] [place] [address] 11/25/2024 10:15 AM EDT Office Visit [facility] MED & PEDS [address] [place] [address] Hal Blair MD [address] [place] [address] documented as of this encounter Visit Diagnoses Not on filedocumented in this encounter Care Teams Osteopathic Resident Relationship Specialty Start Date End Date Hal Blair MD [address] [place] [address] PCP - General Internal Medicine 04/16/20 documented as of this encounter
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
--- OUTSIDE RECORDS SUMMARY | 2024-10-05 08:06 | XMS_ITS | Encounter Summary ---
Author Organization [employer] Address [address] [facility] 7t [place] [address] Care Team Providers Care Marketing Proposal Coordinator Name Role Phone Hal Blair MD Primary Care Prov ider Reason for Visit * Reason Comments Med Refill Encounter Details Date Type Department Care Team (Late st Contact Info) Description 08/19/2024 Refill [facility] PEDS [address] [place] [address] Hal Blair MD [address] [place] [address] Social History Tobacco Use Types Packs/Day Years [...] [facility] [address] [place] [address] Hal Blari MD [address] [place] [address] 11/25/2024 10:15 AM EDT Office Visit [facility] P[facility] [address] [place] [address] Hal Blair MD [address] [place] [address] documented as of this encounter Visit Diagnoses Not on filedocumented in this encounter Additional Health Concerns Assessment Noted Time PHQ-9 Depression Total Score: 0 11/25/19 23 9:24 AM EDT documented as of this encounter Care Teams Marketing Proposal Coordinator Relationship Specialty Start Date End Date Hal Blair MD [address] [place] [address] PCP - General Internal Medicine 04/16/20 documented as of this encounter
--- OUTSIDE RECORDS SUMMARY | 2024-10-05 08:06 | XMS_ITS | Encounter Summary ---
Author Organization [employer] Address [address] [facility] [address] 7[address] [place] [address] Care Team Providers Care Foundry Worker Name Role Phone Hal Blair MD Primary Care Prov ider Encounter Details Date Type Department Care Team (Late st Contact Info) Description 04/04/2024 Orders Only [facility]S [address] [place] [address] Dulce Longoria MD [address] [place] [address] Social History Tobacco Use Types Packs/Day Years [...] Description 10/10/2024 10:30 AM EST Office Visit [facility] MED & PEDS [address] [place] [address] Hal Blair MD [address] [place] [address] 11/25/2024 10:15 AM EDT Office Visit [facility] MED [facility] PEDS [address] [place] [address] Hal Blair MD [address] [place] [address] documented as of this encounter Visit Diagnoses Not on filedocumented in this encounter Additional Health Concerns Assessment Noted Time PHQ-9 Depression Total Score: 0 11/25/19 23 9:24 AM EDT documented as of this encounter Care Teams Foundry Worker Relationship Specialty Start Date End Date Hal Blair MD [address] [place] [address] PCP - General Internal Medicine 04/16/20 documented as of this encounter
[2024-10-05] MEDS: iohexoL 350 MG/ML 75 ML INFUS..BTL 85 ML IV (09:41)
[2024-10-05 10:39] LABS: Creatinine POC 0.8 mg/dL (0.5-1.4); GFR POC > 60
== END 2024-10-05 08:02 | disposition home or self-care (01) ==
LOC: HO.CT 08:01
PROVIDERS: PCP Internal Medicine; Visit Provider Surgery
DX: R10.32 Left lower quadrant pain (principal)
CPT/HCPCS: 74177; 82565; Q9967

== ENCOUNTER → 2024-10-05 08:02 | Outpatient (BNV) | payer OTHER, SELFPAY | PROVIDERS: PCP Internal Medicine; Visit Provider Radiology Diagnostic Radiology | DX: K86.1 Other chronic pancreatitis (principal); N20.0 Calculus of kidney | CPT/HCPCS: 74177 ==

== ENCOUNTER 2024-10-21 12:49 | Outpatient (REF) | payer OTHER, SELFPAY ==
--- OUTSIDE RECORDS SUMMARY | 2024-10-21 13:12 | XMS_ITS | Encounter Summary ---
Author Organization [employer] Address [address] [facility] [address] 7t [place] [address] Care Team Providers Care Concrete Stone Finisher Name Role Phone Hla Blair MD Primary Care Prov ider Reason for Visit * Reason Onset Date Comments Referral 08/22/2024 Encounter Details Date Type Department Care Team (Late st Contact Info) Description 08/22/2024 Telephone [facility] MEDIC[facility] [address] [place] [address] Hal Blair MD [address] [place], [place] [phone] Referral Social History Tobacco Use Types Packs/Day [...] Repair with mesh to Dr. Clemente Hernandez [address], [place] [address] Phone number: [phone] Fax number: [phone] Message previously sent to PCP to see if 15 min appointment in september will suffice for surgeons tohave background on patient. * Telephone Encounter - Tremaine Pate - 08/22/2024 12:12 PM EST Tc fro pt requesting a referral to : Dr. Clemente Hernandez [address], [place] [address] Phone number: [phone] Fax number: [phone] documented in this encounter Plan of Treatment Upcoming Encounters Date Type Department Care Team (Late st Contact Info) Description 11/25/2024 10:15 AM EDT Office Visit [facility] MED & PEDS [address] [place] [address] Hal Blair MD [address] [place] [address] documented as of this encounter Visit Diagnoses Not on filedocumented in this encounter Additional Health Concerns Assessment Noted Time PHQ-9 Depression Total Score: 0 11/25/19 23 9:24 AM EDT documented as of this encounter Care Teams Concrete Stone Finisher Relationship Specialty Start Date End Date Hal Blair MD [address] [place] [id number] PCP - General Internal Medicine 04/16/20 documented as of this encounter
--- OUTSIDE RECORDS SUMMARY | 2024-10-21 13:12 | XMS_ITS | Encounter Summary ---
Author Organization [employer] Address [address] [facility] 7t [place] [address] Care Team Providers Care Sales Representative Aircraft Name Role Phone Hal Blair MD Primary Care Prov ider Reason for Visit * Reason Onset Date Comments FRANK/Yaz 08/18/2024 Encounter Details Date Type Department Care Team ([facility] st Contact Info) Description 08/18/2024 Telephone [facility] MEDICINE [address] [place] [address] Hal Blair MD [address] [facility] [place] [address] FYI/Yaz Social History Tobacco Use Types Packs/Day [...] PM EST TC placed to Kezia at [facility] General Surgery who confirmed that the pt [...] 12:00 PM EST Tc from Kezia with [facility] General Surgeon Stating would like to see if Pt could be Cleared for Surgery in his upcoming apt. If any questions Contact Kezia at [phone] FAX [phone] documented in this encounter Plan of Treatment Upcoming Encounters Date Type Department Care Team (Late st Contact Info) Description 11/25/2024 10:15 AM EDT Office Visit [facility] MED & PEDS [address] [place] [address] Hal Blair MD [address] [place] [address] documented as of this encounter Visit Diagnoses Not on filedocumented in this encounter Additional Health Concerns Assessment Noted Time PHQ-9 Depression Total Score: 0 11/25/19 23 9:24 AM EDT documented as of this encounter Care Teams Sales Representative Aircraft Relationship Specialty Start Date End Date Hal Blair MD [address] [place] [id number] PCP - General Internal Medicine 04/16/20 documented as of this encounter
--- OUTSIDE RECORDS SUMMARY | 2024-10-21 13:12 | XMS_ITS | Encounter Summary ---
Author Organization [employer] Address [address] [facility] 7t [place] [address] Care Team Providers Care Dock Supervisor Name Role Phone Hal Blair MD Primary Care Prov ider Reason for Visit * Reason Onset Date Comments Pre Op 10/06/2024 Encounter Details Date Type Department Care Team ([facility] st Contact Info) Description 10/06/2024 Telephone [facility] MED & PEDS [address] [place], [place] [phone] Hal Blair MD [address] [place] [address] Pre Op Social History Tobacco Use Types Packs/Day Years [...] encounter Miscellaneous Notes * Telephone Encounter - Silvestre Alonzo - 10/12/2024 9:49 AM EST Pre-op Scheduled on 10/20/[address] Rudd . * Telephone Encounter - Fernanda Daley - 10/06/2024 9:45 AM EST Date of Surgery: Waiting on clearance before pt is book Surgical procedure being done: hernia repair left inguinal Type of anesthesia: general anesthesia Lab needed: Yes EKG: Yes Surgeon's name: Dr. Clemente Hernandez Facility name: [facility] Surgeon's office number: [phone] Surgeon's office fax number: [phone] Contact name (person you spoke with): Emeka Prieto office note from surgeon requested: Yes Send Message to Thu Johnson and Silvestre Alonzo documented in this encounter Plan of Treatment Upcoming Encounters Date Type Department Care Team ([facility] st Contact Info) Description 11/25/2024 10:15 AM EDT Office Visit [facility] MED [facility] PEDS [address] [place] [address] Hal Blair MD [address] [place] [address] documented as of this encounter Visit Diagnoses Not on filedocumented in this encounter Additional Health Concerns Assessment Noted Time PHQ-9 Depression Total Score: 0 11/25/19 23 9:24 AM EDT documented as of this encounter Care Teams Dock Supervisor Relationship Specialty Start Date End Date Hal Blair MD [address] [place] [id number] PCP - General Internal Medicine 04/16/20 documented as of this encounter
--- OUTSIDE RECORDS SUMMARY | 2024-10-21 13:12 | XMS_ITS | Encounter Summary ---
Author Organization [employer] Address [address] [facility] [address] [place] [address] Care Team Providers Care Banquet Coordinator Name Role Phone Hal Blair MD Primary Care Prov ider Reason for Visit * Reason Onset Date Comments Med Refill 04/04/2024 Encounter Details Date Type Department Care Team (Late st Contact Info) Description 04/04/2024 Telephone [facility] MED[facility]INE [address] [place] [address] Hal Blair MD [address] [place], [place] [phone] Med Refill Social History Tobacco Use Types [...] 11/25/2024 10:15 AM EDT Office Visit [facility] PED[facility] [address] [place] [address] Hal Blair MD [address] [place] [address] documented as of this encounter Visit Diagnoses Not on filedocumented in this encounter Additional Health Concerns Assessment Noted Time PHQ-9 Depression Total Score: 0 11/25/19 23 9:24 AM EDT documented as of this encounter Care Teams Banquet Coordinator Relationship Specialty Start Date End Date Hal Blair MD [address] [place] [address] PCP - General Internal Medicine 04/16/20 documented as of this encounter
--- OUTSIDE RECORDS SUMMARY | 2024-10-21 13:12 | XMS_ITS | Encounter Summary ---
Author Organization [facility] [facility] Address [address] [facility] [address] [place] [address] Care Team Providers Care Teacher Citizenship Name Role Phone Hal Blair MD Primary Care Prov ider Encounter Details Date Type Department Care Team (Late st Contact Info) Description 01/26/2023 Orders Only [facility] MED & PEDS [address] [place] [address] Socorro Rubio LPN Social History Tobacco Use [...] Description 11/25/2024 10:15 AM EDT Office Visit [facility] MED & PEDS [address] [place] [address] Hal Blair MD [address] [place] [address] documented as of this encounter Visit Diagnoses Not on filedocumented in this encounter Additional Health Concerns Assessment Noted Time PHQ-9 Depression Total Score: 0 11/25/19 23 9:24 AM EDT documented as of this encounter Care Teams Teacher Citizenship Relationship Specialty Start Date End Date Hal Blair MD [address] [place] [address] PCP - General Internal Medicine 04/16/20 documented as of this encounter
--- OUTSIDE RECORDS SUMMARY | 2024-10-21 13:12 | XMS_ITS | Encounter Summary ---
Author Organization [employer] Address [address] [facility] 7t [place] [address] Care Team Providers Care It Program Engagement Director Name Role Phone Hal Blair MD Primary Care Prov ider Reason for Visit * Reason Comments Med Refill Encounter Details Date Type Department Care Team (Late st Contact Info) Description 08/19/2024 Refill [facility] MED & PEDS [address] [place] [address] Hal Blair MD [address] [place] [address] Social History Tobacco Use Types Packs/Day Years [...] Description 11/25/2024 10:15 AM EDT Office Visit [facility] MED & PEDS [address] [place] [address] Hal Blair MD [address] [place] [address] documented as of this encounter Visit Diagnoses Not on filedocumented in this encounter Additional Health Concerns Assessment Noted Time PHQ-9 Depression Total Score: 0 11/25/19 23 9:24 AM EDT documented as of this encounter Care Teams It Program Engagement Director Relationship Specialty Start Date End Date Hal Blair MD [address] [place] [address] PCP - General Internal Medicine 04/16/20 documented as of this encounter
--- OUTSIDE RECORDS SUMMARY | 2024-10-21 13:12 | XMS_ITS | Encounter Summary ---
Author Organization [employer] Address [address] [facility] 7t [place] [address] Care Team Providers Care Canvas Shop Laborer Name Role Phone Hal Blair MD Primary Care Prov ider Reason for Visit * Reason Onset Date Comments No Show 10/10/2024 Encounter Details Date Type Department Care Team ([facility] Contact Info) Description 10/10/2024 Telephone [facility] CHC MED & PEDS [address] [place], [place] [phone] Hal Blair MD [address] [place] [address] No Show Social History Tobacco Use Types Packs/Day Years [...] encounter Miscellaneous Notes * Telephone Encounter - Kristi Yeboah - 10/10/2024 11:56 AM EST 10/10/24 no show for fu multiple conditions documented in this encounter Plan of Treatment Upcoming Encounters Date Type Department Care Team ([facility] st Contact Info) Description 11/25/2024 10:15 AM EDT Office Visit [facility] MED & PEDS [address] [place] [address] Hal Blair MD [address] [place] [address] documented as of this encounter Visit Diagnoses Not on filedocumented in this encounter Additional Health Concerns Assessment Noted Time PHQ-9 Depression Total Score: 0 11/25/19 23 9:24 AM EDT documented as of this encounter Care Teams Canvas Shop Laborer Relationship Specialty Start Date End Date Hal Blair MD [address] [place] [address] PCP - General Internal Medicine 04/16/20 documented as of this encounter
--- OUTSIDE RECORDS SUMMARY | 2024-10-21 13:12 | XMS_ITS | Clinical Summary ---
Author Organization [facility] Address [address] [facility] [place] [address] Care Team Providers Care Pattern Lease Inspector Name Role Phone Hal Blair MD Primary Care Prov ider Unavailable Allergies Active Allergy Reactions Severity Noted Date Comments Aspirin Nausea and Vomiting 06/23/2017 Oxycodone 06/23/2017 No reactions documented. Tramadol Hcl 06/23/2017 No reactions documented Medications Medication Sig Dispensed Refills Start Date End Date Status sertraline (ZOLOFT) 100 MG tablet Take 2 Tabs by mouth daily. 0 Active polyethylene glycol (COLYTE) 240 G solution Drink 8 ounces every 15 minutes over 2 (two) sittings As directed. Finish entire jug. 1 Bottle 0 05/15/2017 Active clonazepam (KLONOPIN) 1 MG tabletIndications:Acu te respiratory failure with hypoxia (HCC),Community acquired pneumonia, unspecified laterality Take 1 mg by mouth 3 times daily. And 1 extra once daily prn anxiety 0 Active Buprenorphine HCl-Naloxone HCl 8-2 MG FILMIndications:Acute respiratory failure with hypoxia (HCC),Community acquired pneumonia, unspecified laterality Place 2 Each under the tongue daily. From [facility] in [place] 0 Active hydrochlorothiazide (HYDRODIURIL) 25 MG tabletIndications:Anx iety and depression,Pulmonary emphysema, unspecified emphysema type (HCC),Former tobacco use Take 1 Tab by mouth daily. 90 Tab 0 10/04/2018 Active ranitidine (ZANTAC) 300 MG tabletIndications:Anx iety and depression,Pulmonary emphysema, unspecified emphysema type (HCC),Former tobacco use Take 1 Tab by mouth at bedtime. 90 Tab 0 11/04/2018 Active VENTOLIN HFA 108 (90 BASE) MCG/ACT Aero SolnIndications:Anxie ty and depression,Pulmonary emphysema, unspecified emphysema type (HCC),Former tobacco use Inhale 2 Puffs into the lungs every 6 hours as needed for Cough or Wheezing. 18 g 0 01/07/2019 Active predniSONE (DELTASONE) 10 MG tabletIndications:GEOLOGICAL SCOUT D exacerbation (HCC),Tobacco abuse,History of substance abuse (HCC) Take 4 tabs QAM x 3 days, take 3 tabs QAM x 3 days, take 2 tabs QAM x 2 days, take 1 tab QAM x 2 days 27 Tab 0 01/08/2019 Active ALBUTEROL SULFATE 108 (90 BASE) MCG/ACT Aero SolnIndications:COPD exacerbation (HCC),Tobacco abuse,History of substance abuse (HCC) Inhale 2 Puffs into the lungs 4 times daily as needed for Cough, Wheezing or Shortness of Breath. 1 Inhaler 5 01/08/2019 Active nicotine (NICODERM CQ) 21 MG/24HRIndications:[place] PD exacerbation (HCC),Tobacco abuse,History of substance abuse (HCC) Place 1 Patch onto the skin every 24 hours for 30 days. 28 Patch 0 01/08/2019 Active lisinopril (PRINIVIL,ZESTRIL) 20 MG tabletIndications:Anx iety and depression,Pulmonary emphysema, unspecified emphysema type (HCC),Former tobacco use take 1 tablet by mouth once daily 90 Tab 0 01/24/2019 Active ibuprofen (IBU) 600 MG tablet Take 1 Tab by mouth every 6 hours as needed for Pain. 120 Tab 0 01/24/2019 Active Active Problems Problem Noted Date Tobacco abuse 01/08/2019 COPD with emphysema 11/26/2017 Respiratory failure with hypoxia 018 Overview: Hospitalized 11/2017 with pneumonia, 3 L ATC Former tobacco use 11/26/2017 Overview: 30 yrs quit 11/2017 Macrocytic anemia 11/26/2017 Overview: Normal iron, folate and B12. GERD (gastroesophageal reflux disease) 1 09/12/2016 Anxiety and depression 06/23/2017 Overview: Hx panic attacks 2011 follows with behavioral health History of substance abuse 06/23/2017 Overview: 01/2010 hx of cocaine use, pos tox screen, Narcotics Violation. 03/2010 pt. had been taking up to 10 Vicodin daily, took suboxone from the street then started on methadone treatment. Hx of osteomyelitis 06/23/2017 Overview: L lower extremity. 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 Essential hypertension 05/13/2017 Resolved Problems Problem Noted Date Resolved Date Supplemental oxygen dependent 12/23/2017 Major depression 06/23/2017 11/26/2017 Immunizations Name Administration Dates Next Due TD (STATE SUPPLIED FOR ADULTS AND CHILDREN) 09/2011 Family History * Patient is adopted Relation Name Status Comments Father Alive Mother Alive Social History Tobacco Use Types Packs/Day Years Used Date Smoking Tobacco: Former Cigarettes 0.3 Q uit: 12/04/2017 Smokeless Tobacco: Never Sex Assigned at Date Recorded Not on file Last Filed Vital Signs Vital Sign Reading Time Taken Comments Blood Pressure 100/60 01/08/2019 10:56 AM EDT Pulse 82 01/08/2019 10:56 AM EDT Temperature 37.2 ??C (98.9 ??F) 01/08/2019 1 0:56 AM EDT Respiratory Rate 15 01/08/2019 10:5 6 AM EDT Oxygen Saturation 93% 11/26/2017 1:3 8 PM EDT 3 L continuous Inhaled Oxygen Concentration - - Weight 82.1 kg (181 lb) 01/08/2019 10:5 6 AM EDT Height 172.7 cm (5' 8 ) 01/08/2019 10:5 6 AM EDT Body Mass Index 27.52 01/08/2019 10:56 AM EDT Plan of Treatment Health Maintenance Due Date Last Done Comments Covid-19 Vaccine (#1) 04/18/1966 BASELINE HEALTH EXAM 40-64 2004 SHINGLES VACCINE (1 of 2) 2014 DEPRESSION SCREEN 11/26/2018 11/26/2017 CHOLESTEROL SCREENING 06/03/2023 06/03/2018 INFLUENZA (#1) 2024 06/03/2018 (Refu sed), 04/17/2017 (External Completion), 08/27/2016 BMI CHECK/ADVISE 09/07/2024 06/03/2018, , 05/13/2017 DTAP/TDAP/TD (2 - Td or Tdap) 03/19/2026 (External Completion), 09/07/2011 COLON CANCER SCREENING 06/03/2028 06/03/2018 (Refuse d) PNEUMOCOCCAL VACCINE FOR HIG H RISK PATIENTS (#2) 2029 06/03/2018 (External Completion), 05/01/2018 HEPATITIS C SCREENING Completed 06/03/2018 Care Teams Pattern Lease Inspector Relationship Specialty Start Date End Date Hal Blair MD PCP - General Internal Medicine 04/28/22
--- OUTSIDE RECORDS SUMMARY | 2024-10-21 13:12 | XMS_ITS | Encounter Summary ---
Author Organization [employer] Address [address] [facility] 7t [place] [address] Care Team Providers Care Anesthesiology Teacher Name Role Phone Hal Blair MD Primary Care Prov ider Reason for Visit * Reason Comments Med Refill Encounter Details Date Type Department Care Team ([facility] st Contact Info) Description 09/13/2024 Refill [facility] CHC MED & PEDS [address] [place] [address] Hal Blair MD [address] [place] [address] Moderate persistent asthma without complication Social History [...] Description 11/25/2024 10:15 AM EDT Office Visit [facility] MED & PEDS [address] [place] [address] Hal Blair MD [address] [place] [address] documented as of this encounter Visit Diagnoses Diagnosis Moderate persistent asthma without complication documented in this encounter Additional Health Concerns Assessment Noted Time PHQ-9 Depression Total Score: 0 11/25/19 23 9:24 AM EDT documented as of this encounter Care Teams Anesthesiology Teacher Relationship Specialty Start Date End Date Hal Blair MD [address] [place] [address] PCP - General Internal Medicine 04/16/20 documented as of this encounter
--- OUTSIDE RECORDS SUMMARY | 2024-10-21 13:12 | XMS_ITS | Encounter Summary ---
Author Organization [employer] Address [address] [place] [address] [address] [place] [address] Care Team Providers Care Textile Machinery Instructor Name Role Phone Hal Blair MD Primary Care Prov ider Reason for Visit * Reason Onset Date Comments returning call 09/26/2022 Encounter Details Date Type Department Care Team (Late Contact Info) Description 09/26/2022 Telephone [facility] MED & PEDS [address] [place] [address] Hal Blair MD [address] [place] [address] returning call Social History Tobacco Use Types [...] 10:20 AM EST T[facility] [place] returning call regarding pre op . documented in this encounter Plan of Treatment Upcoming Encounters Date Type Department Care Team (Late Contact Info) Description 11/25/2024 10:15 AM EDT Office Visit [facility] CHC MED & PEDS [address] [place] [address] Hal Blair MD [address] [place] [address] documented as of this encounter Visit Diagnoses Not on filedocumented in this encounter Care Teams Textile Machinery Instructor Relationship Specialty Start Date End Date Hal Blair MD [address] [place] [address] PCP - General Internal Medicine 04/16/20 documented as of this encounter
--- OUTSIDE RECORDS SUMMARY | 2024-10-21 13:12 | XMS_ITS | Encounter Summary ---
Author Organization [employer] Address [address] [facility] 7[address] [place] [address] Care Team Providers Care Invoice Machine Operator Name Role Phone Hal Blair MD Primary Care Prov ider Encounter Details Date Type Department Care Team (Latest Contact Info) Description 10/20/2024 Travel Social History Tobacco Use Types Packs/Day [...] Office Visit [facility] MED & PEDS [address] [place] [address] Hal Blair MD [address] [place] [address] documented as of this encounter Visit Diagnoses Not on filedocumented in this encounter Additional Health Concerns Assessment Noted Time PHQ-9 Depression Total Score: 0 11/25/19 23 9:24 AM EDT documented as of this encounter Care Teams Invoice Machine Operator Relationship Specialty Start Date End Date Hal Blair MD [address] [place] [address] PCP - General Internal Medicine 04/16/20 documented as of this encounter
--- OUTSIDE RECORDS SUMMARY | 2024-10-21 13:12 | XMS_ITS | Encounter Summary ---
Author Organization [employer] Address [address] [facility] [address] [place] [address] Care Team Providers Care Unit Coordinator Name Role Phone Hal Blair MD Primary Care Prov ider Reason for Visit * Reason Onset Date Comments Appointment Request 09/30/2022 Pre-op Exam 11/20/2022 Encounter Details Date Type Department Care Team (Late st Contact Info) Description 09/30/2022 Telephone [facility] MEDICINE [address] [place] [address] Hal Blair MD [address] [place] [address] Appointment Request; Pre-op Exam Social History Tobacco [...] 10:52 AM EDT Tc from Leanne form [facility] requesting a Pre-Op Location: [facility] [place] [address], [place] [address] EXT [phone] Fax: [phone] Procedure: Cataract surgery right eye Date: 11/26/22 [...] verbalizes understanding and agrees to returncall to [facility]. * Telephone Encounter - Brii Booth - 09/30/2022 1:09 PM EST Tc from Leanne at [facility] returning call back, regarding message below. * Telephone Encounter - Delia Giron RN - 09/30/2022 10:11 AM EST Return call placed to Leanne to schedule preop appt, no answer. LVM to return call to [facility] nurses * Telephone Encounter - Verna Muñiz - 09/30/2022 9:11 AM EST Tc from Leanne form [facility] requesting a Pre-Op Location: Phone: Fax: Procedure: Date: Labs: documented in this encounter Plan of Treatment Upcoming Encounters Date Type Department Care Team ([facility] st Contact Info) Description 11/25/2024 10:15 AM EDT Office Visit [facility] MED & PEDS [address] [place] [address] Hal Blair MD [address] [place] [address] documented as of this encounter Visit Diagnoses Not on filedocumented in this encounter Care Teams Unit Coordinator Relationship Specialty Start Date End Date Hal Blair MD [address] [place] [address] PCP - General Internal Medicine 04/16/20 documented as of this encounter
--- OUTSIDE RECORDS SUMMARY | 2024-10-21 13:12 | XMS_ITS | Encounter Summary ---
Author Organization [employer] Address [address] [facility] [address] [address] 7[address] [place] [address] Care Team Providers Care Director Social Service Name Role Phone Hal Blair MD Primary Care Prov ider Encounter Details Date Type Department Care Team (Late st Contact Info) Description 10/20/2024 1:30 PM EST Office Visit [facility] CHC MED & PEDS [address] [place] [address] Char Rudd MD [address] [place] [address] Inguinal hernia of left side without obstruction or gangrene (Primary Dx); Moderate persistent asthma without complication; Hypertension, unspecified type; Preop examination Social History Tobacco Use Types Packs/Day Years [...] Sign Reading Time Taken Comments Blood Pressure 150/90 10/20/2024 2:09 PM EST Pulse 80 10/20/2024 1:52 PM EST Temperature 36 ??C (96.8 ??F) 10/20/2024 1:52 PM EST Respiratory Rate 20 10/20/2024 1:52 PM EST Oxygen Saturation 98% 10/20/2024 1:52 PM EST Inhaled Oxygen Concentration - - Weight 69.4 kg (153 lb) 10/20/2024 1:52 PM EST Height 165.1 cm (5' 5 ) 10/20/2024 1:52 PM EST Body Mass Index 25.46 10/20/2024 1:52 PM EST documented in this encounter Plan of Treatment Upcoming Encounters Date Type Department Care Team (Late st Contact Info) Description 11/25/2024 10:15 AM EDT Office Visit [facility] MED & PEDS [address] [place] [address] Hal Blair MD [address] [place] [address] Scheduled Orders Name Type Priority Associated Diagnoses Orde r Schedule Basic Metabolic Panel Lab Routine Preop examination Expected: 10/20/2024 (Approximate), Expires: 10/20/2025 CBC auto differential Lab Routine Preop examination Expected: 10/20/2024 (Approximate), Expires: 10/20/2025 Hepatic Function Panel Lab Routine Preop examination Expected: 10/20/2024 (Approximate), Expires: 10/20/2025 Prothrombin Time-INR Lab Routine Preop examination Expected: 10/20/2024, Expires: 10/20/2025 documented as of this encounter Procedures Procedure Name Priority Date/Time Associated Diagnosis Comments ECG 12-LEAD Routine 10/20/2024 4:24 PM EST Preop examination documented in this encounter Results * ECG 12 lead (10/20/2024 4:24 PM EST) Narrative Char Rudd MD - 10/20/2024 4:24 PM EST Sinus rhythm hr 67 bpm us Char Rudd MD ECG ORDERABLES Final Result documented in this encounter Visit Diagnoses Diagnosis Inguinal hernia of left side without obstruction or gangrene- Primary Moderate persistent asthma without complication Hypertension, unspecified type Preop examination Unspecified pre-operative examination documented in this encounter Additional Health Concerns Assessment Noted Time PHQ-9 Depression Total Score: 0 11/25/19 23 9:24 AM EDT documented as of this encounter Care Teams Director Social Service Relationship Specialty Start Date End Date Hal Blair MD [address] [place] [address] PCP - General Internal Medicine 04/16/20 documented as of this encounter
--- OUTSIDE RECORDS SUMMARY | 2024-10-21 13:12 | XMS_ITS | Encounter Summary ---
Author Organization [employer] Address [address] [address] 7[address] [place] [address] Care Team Providers Care Derivatives Trader Name Role Phone Hal Blair MD Primary Care Prov ider Encounter Details Date Type Department Care Team (Late st Contact Info) Description 04/04/2024 Orders Only [facility] CHC MED & PEDS [address] [place] [address] Dulce Longoria MD [address] [place] [address] Social History Tobacco Use Types Packs/Day Years [...] Upcoming Encounters Date Type Department Care Team ([facility] st Contact Info) Description 11/25/2024 10:15 AM EDT Office Visit [facility] CHC MED & PEDS [address] [place] [address] Hal Blair MD [address] [place] [address] documented as of this encounter Procedures Procedure Name Priority Date/Time Associated Diagnosis Comments POCT CREATININE GFR Routine 10/05/2024 8 :39 AM EST documented in this encounter Results * POCT Creatinine GFR (10/05/2024 8:39 AM EST) POCT Creatinine 0.8 0.5 - 1.4 mg/dL [facility] GFR POC >60 [facility] Comment:Chronic Kidney Disea se: Estimated GFR < 60 mL/min/1.49a0Revedj Kidney Disease: Estimated GFR < 15 mL/min/1.73m2 10/05/2024 8:39 AM EST 10/05/2024 10:37 AM EST Narrative [facility] - 10/05/2024 10:39 AM EST [id number] [email or web address] Generic External Data Provider LAB POINT OF CARE TEST DOCKED DEVICE ORDERABLES Final Result [facility] [address] [place] [address] [phone] documented in this encounter Visit Diagnoses Not on filedocumented in this encounter Additional Health Concerns Assessment Noted Time PHQ-9 Depression Total Score: 0 11/25/19 23 9:24 AM EDT documented as of this encounter Care Teams Derivatives Trader Relationship Specialty Start Date End Date Hal Blair MD [address] [place] [address] PCP - General Internal Medicine 04/16/20 documented as of this encounter
--- OUTSIDE RECORDS SUMMARY | 2024-10-21 13:12 | XMS_ITS | Encounter Summary ---
Author Organization [employer] Address [address] [facility] [address] [place] [address] Care Team Providers Care Telecommunications Repairer Name Role Phone Hal Blair MD Primary Care Prov ider Reason for Visit * Reason Comments Med Refill Encounter Details Date Type Department Care Team (Late st Contact Info) Description 02/26/2024 Refill [facility] MEDIC[facility] [address] [place] [address] Hal Blair MD [address] [place], [place] [phone] Social History Tobacco Use Types Packs/Day Years [...] 11/25/2024 10:15 AM EDT Office Visit [facility] MED & PEDS [address] [place] [address] Hal Blair MD [address] [place] [address] documented as of this encounter Visit Diagnoses Not on filedocumented in this encounter Additional Health Concerns Assessment Noted Time PHQ-9 Depression Total Score: 0 11/25/19 23 9:24 AM EDT documented as of this encounter Care Teams Telecommunications Repairer Relationship Specialty Start Date End Date Hal Blair MD [address] [place] [address] PCP - General Internal Medicine 04/16/20 documented as of this encounter
--- OUTSIDE RECORDS SUMMARY | 2024-10-21 13:12 | XMS_ITS | Encounter Summary ---
Author Organization [employer] Address [address] [place] [address] Care Team Providers Care Community Arts Centre Manager Name Role Phone Hal Blair MD Primary Care Prov ider Reason for Visit * Reason Onset Date Comments Nurse Triage 03/15/2024 Encounter Details Date Type Department Care Team (Late st Contact Info) Description 03/15/2024 Telephone [facility] MEDICINE [address] [place] [address] Hal Blair MD [address] [place], [place] [phone] Nurse Triage Social History Tobacco Use Types [...] Description 11/25/2024 10:15 AM EDT Office Visit [facility] MED & PEDS [address] [place] [address] Hal Blair MD [address] [place] [address] documented as of this encounter Visit Diagnoses Not on filedocumented in this encounter Additional Health Concerns Assessment Noted Time PHQ-9 Depression Total Score: 0 11/25/19 23 9:24 AM EDT documented as of this encounter Care Teams Community Arts Centre Manager Relationship Specialty Start Date End Date Hal Blair MD [address] [place] [address] PCP - General Internal Medicine 04/16/20 documented as of this encounter
--- OUTSIDE RECORDS SUMMARY | 2024-10-21 13:12 | XMS_ITS | Encounter Summary ---
Author Organization [employer] Address [address] [facility] 7t [place] [address] Care Team Providers Care Manager Global Communications Name Role Phone Hal Blair MD Primary Care Prov ider Reason for Visit * Reason Comments Med Refill Encounter Details Date Type Department Care Team ([facility] st Contact Info) Description 10/10/2024 Refill [facility] CHC MED & PEDS [address] [place] [address] Hal Blair MD [address] [place] [address] Moderate persistent asthma without complication Social History [...] Description 11/25/2024 10:15 AM EDT Office Visit [facility] MED & PEDS [address] [place] [address] Hal Blair MD [address] [place] [address] documented as of this encounter Visit Diagnoses Diagnosis Moderate persistent asthma without complication documented in this encounter Additional Health Concerns Assessment Noted Time PHQ-9 Depression Total Score: 0 11/25/19 23 9:24 AM EDT documented as of this encounter Care Teams Manager Global Communications Relationship Specialty Start Date End Date Hal Blair MD [address] [place] [address] PCP - General Internal Medicine 04/16/20 documented as of this encounter
--- OUTSIDE RECORDS SUMMARY | 2024-10-21 13:12 | XMS_ITS | Encounter Summary ---
Author Organization [employer] Address [address] 7[address] [place] [address] Care Team Providers Care Export Documents Clerk Name Role Phone Hal Blair MD Primary Care Prov ider Encounter Details Date Type Department Care Team (Late st Contact Info) Description 10/05/2024 Orders Only [facility] [place] External Provider, [facility] Social History Tobacco Use Types Packs/Day Years [...] Description 11/25/2024 10:15 AM EDT Office Visit [facility] 505 [facility] [place] [address] Hal Blair MD 505 [place] [address] documented as of this encounter Procedures Procedure Name Priority Date/Time Associated Diagnosis Comments CT ABDOMEN PELVIS W CONTRAST Routine 10/05/2024 1:08 PM EST documented in this encounter Results * CT Abdomen Pelvis w/ Contrast (10/05/2024 1:08 PM EST) Anatomical Region Laterality Modality Body, Pelvis, Abdomen Computed T omography 10/05/2024 1:08 PM EST Narrative 10/05/2024 1:09 PM EST ? [facility] ?[address] ?[place] [address] ? CT Scan Report ? Signed ? Patient: Rei Nielsen ?MR#: [id number] ?? [id number] ? : 1965 ?Acct:[id number] ? Age/Sex: 58 / M ?ADM Date: 10/05/24 ? Loc: HO.CT ? Attending Dr: Clemente Hernandez MD ? Ordering Physician: Clemente Hernandez MD ?? Date of Service: 10/05/24 ?? Procedure(s): CT abdomen pelvis w IV con ?? Accession Number(s): [id number] ? cc: Hal Blair MD; Clemente Hernandez MD ? Report Number: ?? [id number]: Total DLP = ??293.00 mGy-cm ? CLINICAL HISTORY: R10.32 - Left lower quadrant pain ? CT abdomen and pelvis with contrast ? Comparison: CT/[place]/SR - ABDOMEN WO IV CONTRAST [id number] - 12/14/19 12:46 EDT ? Findings: ?? The lung bases are clear. ? There is chronic pancreatitis. ?? Several small nonobstructing calculi are seen in the lower pole of the ?? left kidney. ?? No bowel obstruction, pneumoperitoneum, or pneumatosis. ?? There is a large stool burden consistent with constipation. ?? There is a small left inguinal hernia containing fat only. ? The solid organs are otherwise unremarkable. Prostate is enlarged. ?? No acute fracture. ? IMPRESSION: ?? 1. Large stool burden suggests constipation. ?? 2. Chronic pancreatitis. ?? 3. Left-sided nephrolithiasis without obstructive uropathy. ?? 4. Prostatomegaly. ?? 5. Small left inguinal hernia containing fat only. ? This document has been electronically signed by: Roby Dalton MD on ?? 10/05/2024 13:08:24 ? Dictated By: ?Roby Dalton MD ? Signed By: ?<Electronically signed by Roby Dalton MD in OV> ? 10/05/24 1308 ? DD/ 1308 ? TD/TT: 10/05/24 1308 ? Igniter Assembler: ? Procedure Note Graham Johnson - 10/05/[address] [address] [address] Scan Report Signed Patient: Rei Nielsen MMR#: [id number] : 1965Acct:[id number] Age/Sex: 58 / MADM Date: 10/05/24 Loc: HO.CT Attending Dr: Clemente Hernandez MD Ordering Physician: Clemente Hernandez MD Date of Service: 10/05/24 Procedure(s): CT abdomen pelvis w IV con Accession Number(s): [id number] cc: Hal Blair MD; Clemente Hernandez MD Report Number: [id number]: Total DLP = 293.00 mGy-cm CLINICAL HISTORY: R10.32 - Left lower quadrant pain CT abdomen and pelvis with contrast Comparison: CT/[place]/SR - ABDOMEN WO IV CONTRAST [id number] - 12/14/19 12:46 EDT Findings: The lung bases are clear. There is chronic pancreatitis. Several small nonobstructing calculi are seen in the lower pole of the left kidney. No bowel obstruction, pneumoperitoneum, or pneumatosis. There is a large stool burden consistent with constipation. There is a small left inguinal hernia containing fat only. The solid organs are otherwise unremarkable. Prostate is enlarged. No acute fracture. IMPRESSION: 1. Large stool burden suggests constipation. 2. Chronic pancreatitis. 3. Left-sided nephrolithiasis without obstructive uropathy. 4. Prostatomegaly. 5. Small left inguinal hernia containing fat only. This document has been electronically signed by: Roby Dalton MD on 10/05/2024 13:08:24 Dictated By: Roby Dalton MD Signed By: <Electronically signed by Roby Dalton MD in OV> 10/05/24 1308 DD/ 1308 TD/TT: 10/05/24 1308 Igniter Assembler: [facility] External Provider IMG CT PROCEDURES Edited Result - Final documented in this encounter Visit Diagnoses Not on filedocumented in this encounter Additional Health Concerns Assessment Noted Time PHQ-9 Depression Total Score: 0 11/25/19 23 9:24 AM EDT documented as of this encounter Care Teams Export Documents Clerk Relationship Specialty Start Date End Date Hal Blair MD [address] [place] [address] PCP - General Internal Medicine 04/16/20 documented as of this encounter
--- OUTSIDE RECORDS SUMMARY | 2024-10-21 13:12 | XMS_ITS | Encounter Summary ---
Author Organization [employer] Address [address] [facility] 7t [place] [address] Care Team Providers Care Alteration Inspector Name Role Phone Hal Blair MD Primary Care Prov ider Reason for Visit * Reason Onset Date Comments Chart Prep 2024 Encounter Details Date Type Department Care Team ([facility] Contact Info) Description 2024 Telephone [facility] MED & PEDS [address] [place], [place] [phone] Hal Blair MD [address] [place] [address] Chart Prep Social History Tobacco Use Types Packs/Day Years [...] encounter Miscellaneous Notes * Telephone Encounter - Teresa Domingo [place] - 2024 4:15 PM EST Chart Prep Labs: not applicable Images: done Vaccines due: yes Referrals: pending appt Screenings: colonoscopy , eye exam , Foot Exam, STI screening Overdue care gaps: Sbirt, SDOH, PHQ-9, Oral Health, disability screening documented in this encounter Plan of Treatment Upcoming Encounters Date Type Department Care Team (Late st Contact Info) Description 11/25/2024 10:15 AM EDT Office Visit [facility] MED & PEDS [address] [place] [address] Hal Blair MD [address] [place] [address] documented as of this encounter Visit Diagnoses Not on filedocumented in this encounter Additional Health Concerns Assessment Noted Time PHQ-9 Depression Total Score: 0 11/25/19 23 9:24 AM EDT documented as of this encounter Care Teams Alteration Inspector Relationship Specialty Start Date End Date Hal Blair MD [address] [place] [address] PCP - General Internal Medicine 04/16/20 documented as of this encounter
--- OUTSIDE RECORDS SUMMARY | 2024-10-21 13:13 | XMS_ITS | Clinical Summary ---
Author Organization [employer] Address [address] [facility] 7t [place] [address] Care Team Providers Care Nurse Consultant Name Role Phone Hal Blair MD Primary Care Prov ider Allergies No known active allergies Medications insulin glargine (Lantus SoloStar) 100 UNIT/ML pen inject 20 units by subcutaneous route every day 022 Active Blood Glucose Monitoring Suppl (FreeStyle Lite) w/Device kit 1 kit in the morning. 1 kit 023 Active insulin glargine (Lantus SoloStar) 100 UNIT/ML penIndications: Type 2 diabetes mellitus without complication, without long-term current use of insulin (FO[facility]) Inject 10 Units under the skin at bedtime. 15 mL 3 023 Active glucose blood (FREESTYLE LITE) test strip USE DIRECTED THREE TIMES DAILY TO TEST BLOOD GLUCOSE 100 strip 11 024 Active FREESTYLE LITE test strip 1 each by Other route every 8 (eight) hours. 100 each 11 024 Active meloxicam (Mobic) 15 MG tablet Take 1 tablet (15 mg) by mouth Once per day. 30 tablet 11 025 2025 Active Ventolin HFA 108 (90 Base) MCG/ACT inhalerIndicati ons:Moderate persistent asthma without complication INHALE 2 PUFFS INTO THE LUNGS EVERY 4 HOURS NEEDED 18 g 3 025 Active Symbicort 80-4.5 MCG/ACT inhalerIndicati ons:Moderate persistent asthma without complication Inhale 2 puffs in the morning and at bedtime. 10.2 g 3 025 Active lisinopril 40 MG tabletIndicatio ns:Hypertension , unspecified type Take 1 tablet (40 mg) by mouth Once per day. 90 tablet 3 Active oxyCODONE-aceta minophen (Percocet) 5-325 MG tabletIndicatio ns:Inguinal hernia of left side without obstruction or gangrene Take 1 tablet by mouth every 6 (six) hours if needed for severe pain for up to 5 days. 15 tablet 025 2024 Active lisinopril 40 MG tabletIndicatio ns:Hypertension , unspecified type TAKE 1 TABLET(40 MG) BY MOUTH IN THE MORNING 90 tablet 3 024 2024 Discontinued(R eorder (will not trigger notification to Pharmacy)) Symbicort 80-4.5 MCG/ACT inhalerIndicati ons:Moderate persistent asthma without complication INHALE 2 PUFFS BY MOUTH EVERY MORNING AND EVERY NIGHT. RINSE MOUTH AFTER USE 10.2 g 3 024 2024 Discontinued(R eorder (will not trigger notification to Pharmacy)) Ventolin HFA 108 (90 Base) MCG/ACT inhalerIndicati ons:Moderate persistent asthma without complication INHALE 2 PUFFS INTO THE LUNGS EVERY 4 HOURS NEEDED 18 g 3 024 2024 Discontinued Active Problems Problem Noted Date Diagnosed Date [...] Encounters Date Type Department Care Team Description 10/20/2024 1:30 PM EST Office Visit [facility] MED & PEDS [address] [place] [address] Char Rudd MD Inguinal hernia of left side without obstruction or gangrene (Primary Dx); Moderate persistent asthma without complication; Hypertension, unspecified type; Preop examination 10/20/2024 Travel 2024 Telephone [facility] MED & PEDS [address] [place] [address] Hal Blair MD Chart Prep 10/10/2024 Refill [facility] MED & PEDS [address] [place] [address] Hal Blair MD Moderate persistent asthma without complication 10/10/2024 Telephone [facility] MED & PEDS [address] [place] [address] Hal Blair MD No Show 10/06/2024 Telephone [facility] MED & PEDS [address] [place] [address] Hal Blair MD Pre Op 10/05/2024 Orders Only [facility] External Provider, [facility] 09/20/2024 Travel 09/19/2024 10:30 AM EST Office Visit [facility] MED & PEDS [address] [place] [address] Hal Blair MD Rib pain on left side (Primary Dx); Chronic pain of left knee 09/19/2024 Travel 09/13/2024 Refill [facility] MED & PEDS [address] [place] [address] Hal Blair MD Moderate persistent asthma without complication 08/22/2024 Telephone [facility] MEDICINE [address] [place] [address] Hal Blair MD Referral 08/19/2024 Refill [facility] MED & PEDS [address] [place] [address] Hal Blair MD 08/18/2024 Telephone [facility] MEDICINE [address] [place] [address] Hal Blair MD FYRogerio/Clearfaraz 08/18/2024 Refill [facility] MED [facility] PEDS [address] [place] [address] Hal Blair MD Moderate persistent asthma without complication 08/15/2024 Telephone [facility] MEDICINE [address] [place] [address] Hal Blair MD Nurse Triage 08/03/2024 Travel 08/03/2024 Telephone [facility] [address] [facility] [place], [place] [phone] Hal Blair MD Medication Question 08/02/2024 2:40 PM EST Office Visit [facility] MED & PEDS [address] [place], [place] [phone] Dulce Longoria MD Left hip pain (Primary Dx); Traumatic ecchymosis of left hip, initial encounter; Acute pain of left knee; Encounter for immunization 08/02/2024 Travel 08/01/2024 Telephone [facility] MED & PEDS [address] [place], [place] [phone] Hal Blair MD Nurse Triage from Last 3 Months Immunizations Name Administration Dates Next Due Influenza Injectable Quadriv alant Preservative Free IIV4 MDCK 07/02/2022,05/18/2020,05/14/2019 Influenza injectable quadriv alent preservative free 08/08/2021,05/04/2018,04/17/2017,04/24 Influenza, IIV3, injectable 04/24/2015, 3 Influenza, seasonal, injecta ble, preservative free 08/27/2016 Pfizer Covid-19 Vaccine 12+ 01/07/2021 Pneumococcal Polysaccharide PPSV23 05/01/2018 TD (adult), 2 Lf tetanus tox oid, preservative free, adsorbed 09/07/2011 Td (adult) 09/07/2011 Td (adult), unspecified 09/07/2011 Tdap 08/02/2024 Zoster, Recombinant 05/18/2020 Social History Tobacco Use Types Packs/Day Years [...] Mass Index 25.46 10/20/2024 1:52 PM EST Plan of Treatment Upcoming Encounters Date Type Department Care Team (Late st Contact Info) Description 11/25/2024 10:15 AM EDT Office Visit [facility] MED & PEDS [address] [place] [address] Hal Blair MD [address] [place] [address] Health Maintenance Due Date Last Done Comments CT Colonography 1965 Colonoscopy 1965 Colorectal Cancer Screening 1965 FIT DNA/Cologuard 1965 FIT 1965 FOBT 1965 HIV Screening 1965 Sigmoidoscopy 1965 Diabetes: Foot Exam 1974 Eye Exam 1974 Alcohol/Substance Use Screening 1976 Tobacco Screening 1976 Hepatitis C Screening 1982 Diabetes: Urine Protein Screening 1983 Pneumococcal Vaccine: 50+ Years (2 of 2 - PCV) 05/01/2019 05/01/2018, 05/01/2018 Zoster Vaccines (2 of 2) 07/13/2020 05/18/2020 Lipid Panel 07/26/2022 07/26/2021 Diabetes: Hemoglobin A1C 05/27/2023 11/24/2022 Depression Screening 11/25/2023 11/24/2022, 11/25/19 23 SDOH Screening 11/25/2023 11/24/2022 COVID-19 Vaccine (3 - season) 2024 01/28/2021, 01/07/2021 Influenza Vaccine (#1) 2024 2, 08/08/2021, 05/18/2020, Additional history exists RSV Patients and Patients Aged 60 years or older (1 - Risk 60-74 years 1-dose series) 2024 DTaP/Tdap/Td Vaccines (2 - Td or Tdap) 08/02/2034 08/02/2024, 09/07/2011, 09/07/2011, Additional history exists HIB Vaccines Aged Out No longer eligi ble based on patient's age to complete this topic HPV Vaccines Aged Out No longer eligi ble based on patient's age to complete this topic Hepatitis A Vaccines Aged Out No long er eligible based on patient's age to complete this topic Hepatitis B Vaccines Aged Out No long er eligible [...] Routine 10/20/2024 4:24 PM EST Preop examination CT ABDOMEN PELVIS W CONTRAST Routine 10/05/2024 1:08 PM EST POCT CREATININE GFR Routine 10/05/2024 8:39 AM EST XR KNEE 4+ VIEWS LEFT Routine 08/03/2024 Acute pain of left knee XR HIP 2 OR 3 VIEWS LEFT Routine 08/03/2024 Left hip pain WOUND CARE Routine 08/02/2024 3:47 PM EST Acute pain of left knee POCT GLYCATED HEMOGLOBIN, TOTAL Routine 11/24/2022 10:08 AM EDT Pre-op examination Type 2 diabetes mellitus with hyperosmolarity without coma, with long-term current use of insulin ([facility]) LIPID PANEL, STANDARD Routine 07/26/2021 8:33 AM EST from Last 3 Months or Most Recently Relevant to Health Maintenance Results * ECG 12 lead (10/20/2024 4:24 PM EST) Narrative Char Rudd MD - 10/20/2024 4:24 PM EST Sinus rhythm hr 67 bpm us Char Rudd MD ECG ORDERABLES Final Result * CT Abdomen Pelvis w/ Contrast (10/05/2024 1:08 PM EST) Anatomical Region Laterality Modality Body, Pelvis, Abdomen Computed T omography 10/05/2024 1:08 PM EST Narrative 10/05/2024 1:09 PM EST ? [facility] ?[address] ?[place] [address] ? CT Scan Report ? Signed ? Patient: Rei Nielsen ?MR#: [id number] ?? [id number] ? : 1965 ?Acct:[id number] ? Age/Sex: 58 / M ?ADM Date: 01/29/25 ? Loc: HO.CT ? Attending Dr: Clemente Hernandez MD ? Ordering Physician: Clemente Hernandez MD ?? Date of Service: 10/05/24 ?? Procedure(s): CT abdomen pelvis w IV con ?? Accession Number(s): [id number] ? cc: Hal Blair MD; Clemente Hernandez MD ? Report Number: ?? [id number]: Total DLP = ??293.00 mGy-cm ? CLINICAL HISTORY: R10.32 - Left lower quadrant pain ? CT abdomen and pelvis with contrast ? Comparison: CT/[place]/SR - ABDOMEN WO IV CONTRAST [id number] - 12/14/19 12:46 EDT ? Findings: ?? [...] DD/ 1308 ? TD/TT: 10/05/24 1308 ? Ppa Teacher: ? Procedure Note Graham Johnson - 10/05/[address] [address] CT Scan Report Signed Patient: Rei Nielsen [facility]#: [id number] : 1965Acct:[id number] Age/Sex: 58 / MADM Date: 10/05/24 Loc: HO.CT Attending Dr: Clemente Hernandez MD Ordering Physician: Clemente Hernandez MD Date of Service: 10/05/24 Procedure(s): CT abdomen pelvis w IV con Accession Number(s): [id number] cc: Hal Blair MD; Clemente Hernandez MD Report Number: [id number]: Total DLP = 293.00 mGy-cm CLINICAL HISTORY: R10.32 - Left lower quadrant pain CT abdomen and pelvis with contrast Comparison: CT/[place]/SR - ABDOMEN WO IV CONTRAST [id number] - 12/14/19 12:46 EDT Findings: The lung [...] 10/05/24 1308 DD/ 1308 TD/TT: 10/05/24 1308 Ppa Teacher: [facility] External Provider IMG CT PROCEDURES Edited Result - Final * POCT Creatinine GFR (10/05/2024 8:39 AM EST) POCT Creatinine 0.8 0.5 - 1.4 mg/dL [facility] GFR POC >60 [facility] Comment:Chronic Kidney Disea se: Estimated GFR < 60 mL/min/1.93m1Akhgqc Kidney Disease: Estimated GFR < 15 mL/min/1.73m2 10/05/2024 8:39 AM EST 10/05/2024 10:37 AM EST Narrative [facility] - 10/05/2024 10:39 AM EST [id number] us Generic External Data Provider LAB POINT OF CARE TEST DOCKED DEVICE ORDERABLES Final Result [facility] [address] [place] [address] [phone] * XR Knee 4+ Views Left (08/03/2024) [...] infection and pain ??Alternatives discussed: ??Delayed treatment [place] protocol: ??Procedure explained and questions answered to [...] Media Lot # [id number] Lot# Expiration Date [id number] Blood 11/24/2022 10:0 8 AM EDT Shwetha Mueller GROVE WORKER POINT OF CARE TEST ENTER/EDIT O RDERABLES Final Result * (ABNORMAL) LIPID PANEL, STANDARD (07/26/2021 8:33 AM EST) Chol/HDLC Ratio 3.6 <5.0 (calc) [facility] Cholesterol, Total 113 <200 mg/dL [facility] HDL Cholesterol 31(L) > OR = 40 mg/dL [facility] LDL Cholesterol 61 mg/dL (calc) [facility] Comment: Reference range: <100 ?? Desirable range <100 mg/dL for primary prevention; ?? <70 mg/dL for patients with CHD or diabetic patients ?? with > or = 2 CHD risk factors. ?? LDL-C is now calculated using the Vickey-Hooper ?? calculation, which is a validated novel method providing ?? better accuracy than the Friedewald equation in the ?? estimation of LDL-C. ?? Vickey GRAHAM et al. TRACEY. 2013;310(19): 5943-6755 ?? (http://education.[employer].com/faq/YIC862) Non-HDL Cholesterol 82 <130 mg/dL (calc) [facility] Comment: For patients with diabetes plus 1 major ASCVD risk ?? factor, treating to a non-HDL-C goal of <100 mg/dL ?? (LDL-C of <70 mg/dL) is considered a therapeutic ?? option. Triglycerides 120 <150 mg/dL [facility] 07/26/2021 8:33 AM EST Hal Dowd MD LAB BLOOD ORDERABL ES Final Result [facility] Anywhere [address] from Last 3 Months or Most Recently Relevant to Health Maintenance Insurance [facility] Care Teams Nurse Consultant Relationship Specialty Start Date End Date Hal Blair MD [address] [place] [address] PCP - General Internal Medicine 04/16/20
--- OUTSIDE RECORDS SUMMARY | 2024-10-21 13:13 | XMS_ITS | Encounter Summary ---
Author Organization [facility] Address [address] [facility] [place] [address] Care Team Providers Care Savings Counselor Name Role Phone Bindu Garcia MD Primary Care Provider Unavail able Community, Pcp [facility] Hal Blair MD Primary Care Prov ider Unavailable Encounter Details Date Type Department Care Team Description 05/28/2018 Refill Adult Medicine [address] [address] Bindu Garcia MD Social History Tobacco Use Types Packs/Day Years Used Date Smoking Tobacco: Former Cigarettes 0.3 Smokeless Tobacco: Never Comments:pt quit 3 weeks ago Sex Assigned at Date Recorded Not on file documented as of this encounter Plan of Treatment Not on file documented as of this encounter Visit Diagnoses Diagnosis Anxiety and depression Dysthymic disorder Pulmonary emphysema, unspecified emphysema type (HCC) Respiratory failure with hypoxia, unspecified chronicity (HCC) Former tobacco use Acute respiratory failure with hypoxia (HCC) Acute respiratory failure Community acquired pneumonia, unspecified laterality documented in this encounter Care Teams Savings Counselor Relationship Specialty Start Date End Date Bindu Garcia MD PCP - General Internal Medicine 04/27/17 07/28/21 Community, Pcp PCP - General Internal Medicine 07/29/21 04/27/22 Hal Blair MD PCP - General Internal Medicine 04/28/22 documented as of this encounter
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
--- OUTSIDE RECORDS SUMMARY | 2024-10-21 13:13 | XMS_ITS | Encounter Summary ---
Author Organization [facility] Address [address] [facility] [place] [address] Care Team Providers Care Video Production Specialist Name Role Phone Bindu Garcia MD Primary Care Provider Unavail able Community, Pcp [facility] Hal Blair MD Primary Care Prov ider Unavailable Encounter Details Date Type Department Care Team Description 12/10/2017 Home Health Certification Medical Records [address] [place] [address] Social History Tobacco Use Types Packs/Day Years Used Date Smoking Tobacco: Former Cigarettes 0.3 Smokeless Tobacco: Never Comments:pt quit 3 weeks ago Sex Assigned at Date Recorded Not on file documented as of this encounter Plan of Treatment Not on file documented as of this encounter Visit Diagnoses Not on filedocumented in this encounter Care Teams Video Production Specialist Relationship Specialty Start Date End Date Bindu Garcia MD PCP - General Internal Medicine 04/27/17 07/28/21 Armaan, Pcp PCP - General Internal Medicine 07/29/21 04/27/22 Hal Blair MD PCP - General Internal Medicine 04/28/22 documented as of this encounter
--- OUTSIDE RECORDS SUMMARY | 2024-10-21 13:13 | XMS_ITS | Encounter Summary ---
Author Organization [facility] Address [address] [facility] [place] [address] Care Team Providers Care Pony Roll Finisher Name Role Phone Bindu Garcia MD Primary Care Provider Unavail able Community, Pcp [facility] Hal Blair MD Primary Care Prov ider Unavailable Encounter Details Date Type Department Care Team Description 12/08/2017 Home Health Certification Medical Records [address] [place] [id number] Social History Tobacco Use Types Packs/Day Years Used Date Smoking Tobacco: Former Cigarettes 0.3 Smokeless Tobacco: Never Comments:pt quit 3 weeks ago Sex Assigned at Date Recorded Not on file documented as of this encounter Plan of Treatment Not on file documented as of this encounter Visit Diagnoses Not on filedocumented in this encounter Care Teams Pony Roll Finisher Relationship Specialty Start Date End Date Bindu Garcia MD PCP - General Internal Medicine 04/27/17 07/28/21 Armaan, Pcp PCP - General Internal Medicine 07/29/21 04/27/22 Hal Blair MD PCP - General Internal Medicine 04/28/22 documented as of this encounter
--- OUTSIDE RECORDS SUMMARY | 2024-10-21 13:13 | XMS_ITS | Encounter Summary ---
Author Organization [facility] Address [address] [facility] [place] [address] Care Team Providers Care Tool Crib Clerk Name Role Phone Community, Pcp Primary Care Provider Bindu Moreno MD Primary Care Provider Unavail able Community, Pcp Primary Care Provider Hal Tellez MD Primary Care Prov ider Unavailable Encounter Details Date Type Department Care Team Description 05/23/2011 Release of Information Orthopedic Surgery - [address] [place] [id number] Abstract, Provider Social History Tobacco Use Types Packs/Day Years Used Date Smoking Tobacco: Never Assessed Sex Assigned at Date Recorded Not on file documented as of this encounter Plan of Treatment Not on file documented as of this encounter Visit Diagnoses Not on filedocumented in this encounter Care Teams Tool Crib Clerk Relationship Specialty Start Date End Date Community, Pcp PCP - General 08/05/04 04/26/17 Bindu Garcia MD PCP - General Internal Medicine 04/27/17 07/28/21 Community, Pcp PCP - General Internal Medicine 07/29/21 04/27/22 Hal Blair MD PCP - General Internal Medicine 04/28/22 documented as of this encounter
--- OUTSIDE RECORDS SUMMARY | 2024-10-21 13:13 | XMS_ITS | Encounter Summary ---
Author Organization [facility] Address [address] [facility] [place] [address] Care Team Providers Care Museum Technician Name Role Phone Bindu Garcia MD Primary Care Provider Unavail able Community, Pcp Primary Care Provider Unavailabl e Hal Blair MD Primary Care Prov ider Unavailable Encounter Details Date Type Department Care Team Description 05/15/2017 Release of Information Medical Records [address] [place] [address] [facility] [place] [address] Abstract, Provider Social History Tobacco Use Types Packs/Day Years Used Date Smoking Tobacco: Every Day Cigarettes 0.3 Sex Assigned at Date Recorded Not on file documented as of this encounter Plan of Treatment Not on file documented as of this encounter Visit Diagnoses Not on filedocumented in this encounter Care Teams Museum Technician Relationship Specialty Start Date End Date Bindu Garcia MD PCP - General Internal Medicine 04/27/17 07/28/21 Armaan, Pcp PCP - General Internal Medicine 07/29/21 04/27/22 Hal Blair MD PCP - General Internal Medicine 04/28/22 documented as of this encounter
--- OUTSIDE RECORDS SUMMARY | 2024-10-21 13:13 | XMS_ITS | Clinical Summary ---
Author Organization [employer] [facility] Address [address] [place] [address] Care Team Providers Care Supervisor Concrete Pipe Plant Name Role Phone Hal Blair Primary Care Provide r Surgical History Surgery Date Site/Laterality Comments ANKLE SURGERY 08/05/04 PROCEDURE: HISTORICAL ANKLE SURGERY; COMMENT: right ankle, 3 screws - Dr Collins at [facility] ANKLE SURGERY 08/2004 PROCEDURE: HISTORICAL ANKLE SURGERY; COMMENT: left ankle, external fixator for 10 days, then plates and screws - Dr Collins at [facility] HERNIA REPAIR 08/2009 PROCEDURE: HISTORICAL HERNIA REPAIR/UMB Medical History Medical History Date Comments GERD (gastroesophageal reflux disease) DX:GERD (gastroesophageal reflux disease) History of substance abuse ([facility]) 06/23/2017 DX:History of substance abuse ([facility]); COMMENT: 01/2010 hx of cocaine use, pos [...] follows with behavioral health 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[facility]) 11/26/2017 DX :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HCC) Former [...] Recorded Sex Assigned at Not on file Legal Sex Male 8:54 PM EST Gender Identity Not on file Sexual Orientation Not on file Obstetrics History Plan of Treatment Health Maintenance Due Date Last Done Comments Pneumococcal Vaccine: 50+ Ye ars (1 of 2 - PCV) 1983 Pneumococcal Vaccine: Pediat rics (0 to 5 Years) and At-Risk Patients (6 to 64 Years) (1 of 2 - PCV) 1983 Zoster Vaccines (1 of 2) 2014 DTaP,Tdap,and Td Vaccines (2 - Td or Tdap) 09/07/2021 09/07/2011 Cholesterol Screening (Lipid Panel) 08/09/2022 Colorectal Cancer Screening: Colonoscopy 08/09/2022 Depression Screening 08/09/2022 HIV Screening 08/09/2022 Hepatitis C Screening 08/09/2022 Social Influencers of Health Screening 08/09/2022 Hypertension/CHF/CAD Annual BMP Blood Test 08/23/2022 COVID-19 Vaccine (1 - 2023-2 5 season) 2024 Influenza Vaccine (#1) 2024 RSV Immunization Patients 60 + Years Old (1 - Risk 60-74 years 1-dose series) 2024 HIB Vaccines Aged Out No longer eligi [...] patient's age to complete this topic Meningococcal B Vacine Aged Out No lo nger eligible based on patient's age to complete this topic RSV Immunization Patients Un efrem 20 months Aged Out No longer eligible b ased on patient's age to complete this topic Varicella Vaccines Aged Out No longer eligible based on patient's age to complete this topic Care Teams Supervisor Concrete Pipe Plant Relationship Specialty Start Date End Date Hal Blair [address] [place] [address] PCP - General Internal Medicine 04/28/22
--- OUTSIDE RECORDS SUMMARY | 2024-10-21 13:13 | XMS_ITS | Encounter Summary ---
Author Organization [facility] Address [address] [place] [address] Care Team Providers Care Fraternity House Cook Name Role Phone Community, Pcp Primary Care Provider Unavailabl e Lit Sanchez MD Primary Care Provider Lizzy Bindu Morgan MD Primary Care Provider Unavail able Community, Pcp Primary Care Provider Unavailabl e Hal Blair MD Primary Care Prov ider Unavailable Reason for Visit * Reason Comments medication problems TRIAGE Encounter Details Date Type Department Care Team Description 09/01/2003 Telephone Adult Medicine [address] [address] Lit Sanchez MD medication problems (TRIAGE) Social History Tobacco Use Types Packs/Day Years Used Date Smoking Tobacco: Never Assessed Sex Assigned at Date Recorded Not on file documented as of this encounter Miscellaneous Notes * Telephone Encounter - 09/01/2003 2:[address] David * Telephone Encounter - 09/01/2003 1:45 PM ESTCALL RECEIVED. Contact: [employer] - [phone] [employer] PHARMACIST CALLING TO VERIFY NUMBER OF REFILLS FOR THIS PATIENT'S SOMA, PLEASE CALL THEM BACK. documented in this encounter Plan of Treatment Not on file documented as of this encounter Visit Diagnoses Not on filedocumented in this encounter Care Teams Fraternity House Cook Relationship Specialty Start Date End Date Community, Pcp PCP - General 08/05/04 04/26/17 Lit Sanchez MD PCP - General 03/01/02 09/15/03 Bindu Garcia MD PCP - General Internal Medicine 04/27/17 07/28/21 Armaan Pcp PCP - General Internal Medicine 07/29/21 04/27/22 Hal Blair MD PCP - General Internal Medicine 04/28/22 documented as of this encounter
--- OUTSIDE RECORDS SUMMARY | 2024-10-21 13:13 | XMS_ITS | Encounter Summary ---
Author Organization [employer] Address [address] [facility] [address] [place] [address] Care Team Providers Care Brim Molder Name Role Phone Hal Blair MD Primary Care Prov ider Reason for Visit * Reason Onset Date Comments ER Follow-up 07/23/2023 Encounter Details Date Type Department Care Team ([facility] Contact Info) Description 07/23/2023 Telephone [facility] [address] [place] [address] Hal Blair MD [address] [place] [address] ER Follow-up Social History Tobacco Use Types [...] below. Pt states he was seen by [facility] for SOB. Pt was not prescribed anything [...] - 07/23/2023 2:01 PM EST Tc from [facility] with [facility] to report an [facility] visit. Pt was seen at home by [facility] on 07/21 for breathing trouble. Pt is requesting a f/u with PCP. Was advised will forward to team nurses for f/u. Please contact pt at [phone] documented in this encounter Plan of Treatment Upcoming Encounters Date Type Department Care Team (Late st Contact Info) Description 11/25/2024 10:15 AM EDT Office Visit [facility] [address] [place] [address] Hal Blair MD [address] [place] [address] documented as of this encounter Visit Diagnoses Not on filedocumented in this encounter Additional Health Concerns Assessment Noted Time PHQ-9 Depression Total Score: 0 11/25/19 23 9:24 AM EDT documented as of this encounter Care Teams Brim Molder Relationship Specialty Start Date End Date Hal Blair MD [address] [place] [address] PCP - General Internal Medicine 04/16/20 documented as of this encounter
--- OUTSIDE RECORDS SUMMARY | 2024-10-21 13:13 | XMS_ITS | Encounter Summary ---
Author Organization [employer] Address [address] [facility] [address] [place] [address] Care Team Providers Care Marble Installation Helper Name Role Phone Hal Blair MD Primary Care Prov ider Encounter Details Date Type Department Care Team (Late st Contact Info) Description 08/21/2023 Abstract [facility] [address] [place] [address] Hal Blair MD [address] [place], [place] [id number] Social History Tobacco Use Types Packs/Day Years [...] Description 11/25/2024 10:15 AM EDT Office Visit [facility] [address] [place] [address] Hal Blair MD [address] [place] [address] documented as of this encounter Visit Diagnoses Not on filedocumented in this encounter Additional Health Concerns Assessment Noted Time PHQ-9 Depression Total Score: 0 11/25/19 23 9:24 AM EDT documented as of this encounter Care Teams Marble Installation Helper Relationship Specialty Start Date End Date Hal Blair MD [address] [place] [address] PCP - General Internal Medicine 04/16/20 documented as of this encounter
--- OUTSIDE RECORDS SUMMARY | 2024-10-21 13:13 | XMS_ITS | Encounter Summary ---
Author Organization [employer] Address [address] [facility] [address] [place] [address] Care Team Providers Care Center Human Resources Manager Name Role Phone Hal Blair MD Primary Care Prov ider Reason for Visit * Reason Onset Date Comments Nurse Triage 08/15/2024 Encounter Details Date Type Department Care Team (Late st Contact Info) Description 08/15/2024 Telephone [facility] [address] [place] [address] Hal Blair MD [address] [place] [address] Nurse Triage Social History Tobacco Use Types [...] didn't answer left voice message to call [facility] [phone] * Telephone Encounter - Glenn Domingo - 08/15/2024 4:08 PM EST Symptom: Urination Pain Outcome: Schedule an urgent appointment (within 1 hour) or talk to a nurse or provider soon Reason: Blood in urine documented in this encounter Plan of Treatment Upcoming Encounters Date Type Department Care Team (Late st Contact Info) Description 11/25/2024 10:15 AM EDT Office Visit [facility] [address] [place] [address] Hal Blair MD [address] [place] [address] documented as of this encounter Visit Diagnoses Not on filedocumented in this encounter Additional Health Concerns Assessment Noted Time PHQ-9 Depression Total Score: 0 11/25/19 23 9:24 AM EDT documented as of this encounter Care Teams Center Human Resources Manager Relationship Specialty Start Date End Date Hal Blair MD [address] [place] [address] PCP - General Internal Medicine 04/16/20 documented as of this encounter
--- OUTSIDE RECORDS SUMMARY | 2024-10-21 13:13 | XMS_ITS | Data Portability ---
Author Organization [employer] [facility] [facility] [[email or web address]]Filmijob Address [address] [place] [address] Care Team Providers Care Impregnator Helper Name Role Phone [facility] Referring Provider [facility] Referring Provider Assessment Encounter Date Assessment Date Assessment LastModified by Organization Details LastModified Time 04/15/2022 04/15/2022 This 56-year-old male called [facility] about the recent onset of inflammation of [...] PCP. The patient agreed with this plan. [email or web address] Not available 04/15/2022 11:46:49 06/22/2023 06/22/2023 I have reviewed and agree with the assessment and plan as documented by the travel counselor. I provided real time medical direction for this encounter and was immediately available to provide additional phone based assistance as needed. History as noted by travel counselor. Pt with history of IDDM, reports fall [...] Assessment and Plan as documented by the Mine Car Repairer. Patient given the opportunity to ask questions. [...] assist with home O2 supplies and the travel counselor on the scene graciously helped the patient call his PCP to assist him with refilling and clarifying his medications and their doses. Not available 07/21/2023 15:47:41 06/16/2024 06/16/2024 As noted, we were called to see this patient regarding concerns of edema. Evaluation in the field was performed by my travel counselor colleague, as noted above, I provided real-time [...] Intoxicated limiting comfort with work up for travel counselor. Encourage elevation, mobilizatoin, f/u w PCP and [...] Assessment and Plan as documented by the Mine Car Repairer. Patient given the opportunity to ask questions. Our service contacted for an assessment of: Edema As per above, patient had obvious hypoxemia with bluish color of his lips. Diminished breath sounds per travel counselor bilaterally with poor air movement and 3+ bilateral pitting edema. Per travel counselor on the scene, patient's O2 sat on room air 58% and upon arrival of 911 services the patient is O2 sat went to 78 with CPAP and PEEP 10 in the field Impression and plan: Sent 911 to [facility] Emergency Department with hypoxemia and expect call made. Not available 06/18/2024 13:04:54 Plan of Treatment Reminders Order Date Submit Date Provider Last Modified By Organization Details Last Modified Time Details Appointments None recorded. Lab None recorded. Referral None recorded. Procedures None recorded. Surgeries None recorded. Imaging None recorded. Medication Orders bacitracin 500 unit/gram topical ointment 2022 023 [id number], [address], [place], [id number], 12:38:27 Bactrim 400 mg-80 mg tablet [address] [facility], [address] [place] [address], [id number], 12:01:09 Patient TargetsNo targets recorded. Patient InstructionsNo instructions [...] /min 94 % 94 % 3 L/min 22436.8 4 g 147 mm[Hg] 78 mm[Hg] Not Available [employer] - [employer] 3 12:12:52 Date Recorded Respiratory rate Provider Name a nd Address Organization Details Last Updated DateTime 06/22/2023 18 /min Shaun Cosby MD [address] [place] [address],[address], [place], [address], [place] - [employer] 06/22/2023 12:15:42 Date Recorded Respiratory rate Heart rate Oxygen saturation Oxygen saturation in Arterial blood by Pulse oximetry Body temperature Body weight Body height Systolic blood pressure Diastolic blood pressure Provider Name and Address Organization Details Last Updated DateTime 3 18 /min 80 /min 90 % 90 % 99 [degF] 11680.6 g 172.72 cm 172 mm[Hg] 79 mm[Hg] Not Available [employer] 3 14:41:07 Date Recorded Body temperature Oxygen saturation Oxygen saturation in Arterial blood by Pulse oximetry Inhaled oxygen flow rate Body weight Heart rate Respiratory rate Systolic blood pressure Diastolic blood pressure Provider Name and Address Organization Details Last Updated DateTime 4 98.8 [degF] 96 % 96 % 4 L/min 87249.8 g 84 /min 16 /min 158 mm[Hg] 78 mm[Hg] Not Available [employer] 4 19:02:49 Date Recorded Oxygen saturation Oxygen saturation in Arterial blood by Pulse oximetry Body weight Heart rate Respiratory rate Body temperature Systolic blood pressure Diastolic blood pressure Provider Name and Address Organization Details Last Updated DateTime 4 50 % 50 % 97235.9 84 g 91 /min 14 /min 97.6 [degF] 153 mm[Hg] 77 mm[Hg] Not Available [employer] 4 13:02:02 Social History None recorded. Functional Status None recorded. Mental Status None recorded. Family History Nothing Reported. Medical History No medical history recorded. Past Encounters Encounter ID Performer Location Encounter Start Date Encounter Closed Date Diagnosis/Indication Diagnosis SNOMED-CT Code Diagnosis ICD10 Code Diagnosis Note [id number] Sree Adams MD [facility] - [employer] [address] [place] [address] [id number] 04/15/2022 11:39:15 06/03/2022 16:00:54 Cellulitis of lower limb 782478236 L03.119 [id number] Shaun Cosby MD [facility] - [employer] [address] [place] [address] [id number] 06/22/2023 12:12:41 06/23/2023 10:58:10 Abrasion of face 345684007 S00.81XA Abrasion o f skin of right knee 6550845530 6501800 S80.211A [id number] Deja Gomez MD [facility] [address] [place] [address] [id number] 07/21/2023 14:41:01 07/21/2023 19:27:27 Chronic obstructive pulmonary disease 17310374 J44.9 [id number] Sweetie Mcclure MD [facility] [address] [place] [address] [id number] 06/16/2024 19:02:40 06/16/2024 22:34:31 Edema of lower extremity 794296127 R60.0 [id number] Deja Gomez MD [facility] [address] [place] [address] [id number] 06/18/2024 13:01:53 06/18/2024 17:38:25 Hypoxia 676789777 R09.02 Health Concerns Section Related Observation LastModified by Organization Detai ls LastModified Time None Recorded Concern Status LastModified by Organization Details LastModified Time None Recorded Advance Directives Directive None Recorded Payers Encounter Date Sequence Insurance Name Policy Number Policy Darling Covered Member ID Darling Member ID Guarantor Name 04/15/2022 1 [facility] [employer] - DOS PRIOR TO 2022 - DUAL ELIGIBLE (MEDICARE REPLACEMENT/AD VANTAGE - HMO) Rei Nielsen [id number] Rei Nielsen 06/22/2023 1 [facility] - DOS ON OR AFTER 2022 - DUAL ELIGIBLE - ALF OPTIONS AND ONE CARE (MEDICARE REPLACEMENT/AD VANTAGE - HMO) Rei Nielsen [id number] Rei Nielsen 07/21/2023 1 [facility] [employer] - DOS ON OR AFTER 2022 - DUAL ELIGIBLE - ALF OPTIONS AND ONE CARE (MEDICARE REPLACEMENT/AD VANTAGE - HMO) Rei Nielsen [id number] Rei Nielsen 06/16/2024 1 [facility] - DOS ON OR AFTER 2022 - DUAL ELIGIBLE - ALF OPTIONS AND ONE CARE (MEDICARE REPLACEMENT/AD VANTAGE - HMO) Rei Nielsen [id number] Rei Nielsen 06/18/2024 1 [facility] - DOS ON OR AFTER 2022 - DUAL ELIGIBLE - ALF OPTIONS AND ONE CARE (MEDICARE REPLACEMENT/AD VANTAGE - HMO) Rei Nielsen [id number] Rei Nielsen Notes Date Note Type Note Provider Name and Address Organization Details Recorded Time 04/15/2022 text/html HPI: Left lower extremity cellulitis , 4 inch area , bright red as had before in August. ..................... ..................... ..................... ..................... ..................... ..................... ............... [facility] Nursing Assessment: Comments: request review no further information needed to process visit Sree Adams MD [address] [place] [address],[address], [place], [phone], [employer] 04/15/2022 11:50:04 06/22/2023 text/html This was a super vised home visit with travel counselor Rei Caraballo. HPI: HX: Smoker , Opioid dependency in Remission,GERD, anxiety. Patient with fall on the street 3-4 days prior. Scraped knee and face. NO ED evaluation. BG at home after found to be 50. OK since then this morning 123. Concerned about wounds. Last TDAP per record here is 09/2011. ..................... ..................... ..................... ..................... ..................... ..................... ............... [facility] Nursing Assessment: Comments: POC went low, dizzy, 5 days ago, fell and now has wounds to right knee/face. painful. No ED visit hx PTSD Called Member and updated address/phone number [email or web address] ..................... ..................... ..................... ..................... ..................... ..................... ............... Mine Car Repairer Note From Rei Caraballo: Pt reports fall [...] ............... Disposition: Fulfilled Shaun Cosby MD [address] [facility],[address], [place], [address], [employer] 06/22/2023 13:01:38 07/21/2023 text/html HPI: Member called [...] ..................... ..................... ..................... ..................... ..................... ..................... ............... Mine Car Repairer Note From Clemente Ramsey: Patient CONSTANTINO times [...] accessory muscles to breathe negative edema noted. [facility] advises patient to follow up with PCP-[facility] to obtain refills of Symbicort. [facility] will call in albuterol to patient? s local pharmacy. Red flags and patient education discussed. ..................... ..................... ..................... ..................... ..................... ..................... ............... Disposition: Fulfilled Deja Gomez MD [address] [facility],[address], [place], [address], [employer] 07/21/2023 15:48:16 06/16/2024 text/html [facility] Nurse Triage [...] of breath. No known fever. Denies chest pain.[facility] HPI: 2+ pitting edema x 2 days. warmth, redness. swelling has happened before maybe but not with this swelling. no recent chest pain episodes, no worsened shob or dizziness. intoxicated.......... ..................... ..................... ..................... ..................... ..................... ..................... ...... Mine Car Repairer Note From Nehemias Mitchell: Pt co edema [...] 1 to 2 plus edema present bilaterally. [facility] contacted and advised pt to keep legs/feet elevated overnight and wear compression socks. [facility] scheduled follow up appt fortomorrow to reevaluation, Pt agreeable to care plan. Pt education on signs indicating theER. ..................... ..................... ..................... ..................... ..................... ..................... ............... Disposition: Fulfilled Sweetie Mcclure MD [address] [facility],[address], [place], [address], [employer] 06/16/2024 20:41:41 06/18/2024 text/html [facility] Nurse Triage Notes (Linda Ellsworth): Chief Complaints: Cellulitis PMH: COPD/Asthma, Diabetes, Hypertension Allergies: Unknown Comments: Pt was seen on 06/16. [facility] recommended a follow up visit. > [facility] Remarksintoxicated. best to repeat visit tomorrow for [...] ..................... ..................... ..................... ..................... ..................... ..................... ............... Mine Car Repairer Note From Rei Caraballo: Pt with hx [...] BLS and [facility], transport to [facility]. ..................... ..................... ..................... ..................... ..................... ..................... ............... Disposition: Fulfilled Deja Gomez MD [address] [facility],[address], [place], [address], [employer] 06/18/2024 13:07:05
[2024-10-21 14:12] LABS: MANUAL DIFF FLAG NO
[2024-10-21 14:24] LABS: Basophils Percent Auto 0.4 % (0-2); Eosinophils Absolute Auto 0.1 X10*3/uL (0.0-0.4); Eosinophils Percent Auto 2.2 % (0-4); Hematocrit 43.3 % (42.0-52.0); Hemoglobin 14.3 g/dl (14.0-18.0); Imm Gran Abs Auto 0.01 X10*3/uL (0.00-0.03); Imm Gran Pct Auto 0.2 % (0.0-0.4); Lymphocytes Absolute Auto 1.2 X10*3/uL (1.2-4.9); Lymphocytes Percent Auto 23.1 % (20-40); Mean Corpuscular Hemoglobin 33.6 pg (27.0-33.0); Mean Corpuscular Volume 101.9 fL (80.0-98.0); Mean Platelet Volume 10.6 fL (9.4-12.4); Monocytes Absolute Auto 0.4 X10*3/uL (0.1-1.2); Monocytes Percent Auto 7.6 % (2-11); Neutrophils Absolute Auto 3.3 x10*3/uL (2.0-8.3); Neutrophils Percent Auto 66.5 % (45-73); Platelet Count 152 X10*3/uL (160-400); Red Blood Count 4.25 X10*6/uL (4.60-5.80); Red Cell Distribution Width 12.5 % (11.0-16.0)
[2024-10-21 14:30] LABS: Prothrombin Time 11.2 SEC (10.9-12.4)
[2024-10-21 14:42] LABS: Alanine Aminotransferase 25 U/L (0-40); Alkaline Phosphatase 69 U/L (39-117); Anion Gap 9 (12-20); Aspartate Amino Transferase 26 U/L (5-37); Bilirubin Direct 0.2 mg/dL (0.0-0.5); Bilirubin Total 0.4 mg/dL (0.0-1.0); Blood Urea Nitrogen 13 mg/dL (9-16); Calcium 9.2 mg/dL (8.4-10.2); Carbon Dioxide 32 mmol/L (22-29); Chloride 104 mmol/L (96-108); Estimated Glomerular Filt Rate > 60; Glucose Random 244 mg/dL (60-115); Potassium 4.4 mmol/L (3.3-5.1); Sodium 141 mmol/L (135-145); Total Protein 6.8 g/dL (6.5-8.0)
== END 2024-10-21 12:50 | disposition home or self-care (01) ==
LOC: HO.CHCLDS 12:49
PROVIDERS: Visit Provider Pediatrics
DX: Z01.818 Encounter for other preprocedural examination (principal)
CPT/HCPCS: 36415; 80048; 80076; 85025; 85610

== ENCOUNTER → 2024-11-02 10:30 | Day surgery (SDC) | payer OTHER, SELFPAY ==
[2024-10-12 10:11] VITALS: BP 159/85; PULSE 66; RESP 16; O2SAT 92; BMI 23.7
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
--- NOTE | ~2024-11-02 | XR_ITS ---
EXAMINATION: XR CHEST CLINICAL INFORMATION: Hypoxemia COMPARISON: 11/13/2009 TECHNIQUE: Frontal view of the chest was obtained. FINDINGS: The cardiac, hilar, and mediastinal contours are normal. Aortic mural calcification. The lungs are diffusely hyperaerated, however clear bilaterally. No pneumothorax or effusion. No focal osseous or soft tissue abnormality. XR/XR chest 1V IMPRESSION: 1. Hyperaerated lungs. No active superimposed disease. Electronically signed by: Henrry Hinojosa MD 11/02/2024 12:16 PM [facility]
[2024-11-02 11:10] VITALS: BP 102/53; PULSE 80; RESP 15; TEMP 36.3; O2SAT 91
[2024-11-02] MEDS: Lactated Ringers 1,000 ML 100 ML IVCONT (11:11)
[2024-11-02 11:18] LABS: Glucose, Whole Blood 51 mg/dL (60-115)
[2024-11-02] MEDS: Dextrose 5 % 500 ML IVCONT (11:20)
--- NOTE | 2024-11-02 11:27 | MHC.SHP ---
Pre-Procedural Eval Section A - 24 Hr Update-Section A only Date of Service: 11/02/24 The patient is an INPATIENT: No Changes since office visit: Yes Patient answered all questions; No Cold of Flu in the past 2 weeks, No New Medical Problems and No Changes in Medication The patient has been examined within 24 hours of the surgical procedure. The History & Physical has been completed within 30 days and I have reviewed it.: No Section B - Complete if H&P > 30 days Chief Complaint: Unilateral inguinal hernia, without obstruction or Details of Present Illness: No change in the patient's hernias symptoms Relevant Family History (Specify if Yes): No Relevant Social History: None Present Medications: see Short Stay Collaborative assessment Medical History: No relevant PMH History of Previous Operations: Relevant previous surgery/procedure and date(s) (Previous hernia repair in 2020) Allergies: Allergies Allergy/AdvReac Type Severity Reaction Status Date / Time No Known Allergies Allergy Verified 11/02/24 10:42 Review of Systems Sugical H&P ROS: Negative: Constitution, Cardiovascular, Respiratory, Neurological, Psychiatric, Hem-Onc, Allergic/Immunologic, Gastrointestinal, Genitourinary, Musculoskeletal, Integumentary, Endocrine and Eyes/Ears/Nose/Throat Exam Surgical H&P Exam: Normal: HEENT, Normal: Heart, Normal: Lungs, Normal: Extremities, Normal: Abdomen, Normal: Skin and Normal: Neurological Plan Diagnosis/Plan: Unchanged I have reviewed the history and physical and performed a pertinent physical examination on my patient. No changes have occurred unless specified. Time Spent With Patient Time: Total time managing care of this patient today ____ minutes.
[2024-11-02 12:03] LABS: Glucose, Whole Blood 80 mg/dL (60-115)
--- NOTE | 2024-11-02 12:31 | PC.NURSE ---
pt o2 sat started at 84-87%, sticker probe used on forehead and o2 sat up between 91-93%, occasionally up to 95%. per anesthesia, o2 sat dropped again to 88% and cxr ordered. cxr not normal and md at bedside to cancel surgery for today. has to be seen by md. pt upset and just wanted to get out of here with a pain medication rx. md sent rx to our pharmacy and pt left after dressed and iv out. tried to explain safety of being evaluated more prior to surgery but not willing to listen to our recomendations. left.
== END | disposition home or self-care (01) ==
PROVIDERS: PCP Internal Medicine; Visit Provider Surgery
DX: K40.90 Unilateral inguinal hernia, without obstruction or gangrene, not specified as recurrent (principal); Z53.09 Procedure and treatment not carried out because of other contraindication; R09.02 Hypoxemia; J44.9 Chronic obstructive pulmonary disease, unspecified
CPT/HCPCS: 71045; 82947; C9088; J0690; J2003; J2704; J3010

== ENCOUNTER → 2024-11-02 11:55 | Outpatient (BNV) | payer OTHER, SELFPAY | PROVIDERS: PCP Internal Medicine; Visit Provider Radiology Diagnostic Radiology | DX: J98.4 Other disorders of lung (principal) | CPT/HCPCS: 71045 ==